=== PATIENT | male | born 1945 | race Caucasian/White ===

== ENCOUNTER 2016-11-20 10:03 | Emergency (ER) | payer BC, OTHER ==
[2016-11-20 10:11] VITALS: TEMP 98.4; BMI 28.8
--- NOTE | 2016-11-20 10:33 | PDOC ---
History of Present Illness - General History Source: Patient Exam Limitations: No Limitations - History of Present Illness Initial Comments: 11/20/16 11:18 The patient is a 71 year old male with history of CAD s/p RCA stent, anxiety/ depression requiring psychiatric admission, who presents to the ED complaining of several days of blurred vision. Per the patient's friend at bedside, the patient was seen by a retinal specialist on , who told him he had " blood behind the eyes" and sent him to the ED for further evaluation. The patient's friend endorses polyuria. She denies abdominal pain, nausea, or vomiting. No dizziness or headache. No fever or chills. Retina Specialist: Dr. Joaquim Rubin [phone] <Gabbie Erickson - Last Filed: 11/20/16 14:10> <Henrry Perez - Last Filed: 11/20/16 16:39> - General Chief Complaint: Blood Pressure Problem Stated Complaint: DIFFICULTY SEEING Time Seen by Provider: 11/20/16 10:33 Past History <Gabbie Erickson - Last Filed: 11/20/16 14:10> - Past Medical History Cardiac Disorders: Yes (STENT, PARTIALLY ACCLUDED CAROTID) Dementia: Yes (EARLY ONSET) Psychiatric Problems: Yes (DEPRESSION,ANXIETY,OCD) - Surgical History Cardiac Surgery: Yes (STENT) - Psycho/Social/Smoking Cessation Hx Anxiety: Yes Suicidal Ideation: No Smoking History: Never smoked Hx Alcohol Use: No Drug/Substance Use Hx: No <Henrry Perez - Last Filed: 11/20/16 16:39> - Past Medical History Allergies/Adverse Reactions: Allergies Allergy/AdvReac Type Severity Reaction Status Date / Time No Known Allergies Allergy Verified 11/20/16 10:11 Home Medications: Ambulatory Orders Hydrocortisone/Pramoxine [Proctofoam-Hc Foam] 10 gm QID #20 foam 11/20/16 Review of Systems - Review of Systems Able to Perform ROS?: Yes Comments:: 11/20/16 11:22 GENERAL/CONSTITUTIONAL: No fever or chills. No weakness. HEAD, EYES, EARS, NOSE AND THROAT: Bilateral blurred vision. No ear pain or discharge. No sore throat CARDIOVASCULAR: No chest pain or shortness of breath. RESPIRATORY: No cough, wheezing, or hemoptysis. GASTROINTESTINAL: No nausea, vomiting, diarrhea or constipation. GENITOURINARY: No dysuria, frequency, or change in urination. MUSCULOSKELETAL: No joint or muscle swelling or pain. No neck or back pain. SKIN: No rash NEUROLOGIC: No headache, vertigo, loss of consciousness, or change in strength/ sensation. ENDOCRINE: +Polyuria, +polydipsia. No abnormal weight change. HEMATOLOGIC/LYMPHATIC: No anemia, easy bleeding, or history of blood clots. ALLERGIC/IMMUNOLOGIC: No hives or skin allergy. <Gabbie Erickson - Last Filed: 11/20/16 14:10> *Physical Exam - Vital Signs Last Vital Signs Temp Pulse Resp BP Pulse Ox 98.4 F 67 18 188/97 98 11/20/16 10:06 11/20/16 10:06 11/20/16 10:06 11/20/16 10:06 11/20/16 10:06 - Physical Exam Comments: 11/20/16 11:23 GENERAL: Awake, alert, and fully oriented, in no acute distress HEAD: No signs of trauma EYES: PERRLA, EOMI, sclera anicteric, conjunctiva clear ENT: Auricles normal inspection, hearing grossly normal, nares patent, oropharynx clear without exudates. Moist mucosa NECK: Normal ROM, supple, no lymphadenopathy, JVD, or masses LUNGS: Breath sounds equal, clear to auscultation bilaterally. No wheezes, and no crackles HEART: Regular rate and rhythm, normal S1 and S2, no murmurs, rubs or gallops ABDOMEN: Soft, nontender, normoactive bowel sounds. No guarding, no rebound. No masses EXTREMITIES: Normal range of motion, no edema. No clubbing or cyanosis. No cords, erythema, or tenderness NEUROLOGICAL: Cranial nerves II through XII grossly intact. Normal speech, normal gait SKIN: Warm, Dry, normal turgor, no rashes or lesions noted. <Gabbie Erickson - Last Filed: 11/20/16 14:10> - Vital Signs Last Vital Signs Temp Pulse Resp BP Pulse Ox 98.4 F 67 18 188/97 98 11/20/16 10:06 11/20/16 10:06 11/20/16 10:06 11/20/16 10:06 11/20/16 10:06 <Henrry Perez Last Filed: 11/20/16 16:39> Heart Score/ECG Review #1 11/20/16 12:08 EKG obtained 12:04. Normal sinus rhythm (vent rate 63 bpm) with sinus arrhythmia. Left axis deviation Let ventricular hypertrophy with QRS widening and repolarization abnormality. Cannot rule out Septal infarct, age undetermined. Abnormal ECG. <Gabbie Erickson - Last Filed: 11/20/16 14:10> ED Treatment Course - LABORATORY CBC & Chemistry Diagram: 11/20/16 11:58 11/20/16 11:58 - RADIOLOGY Radiograph Interpretation: 11/20/16 14:09 Chest x-ray, read and interpreted by Dr. Fu, shows no acute pathology with no significant changes since comparison study. <Gabbie Erickson - Last Filed: 11/20/16 14:10> - LABORATORY CBC & Chemistry Diagram: 11/20/16 11:58 11/20/16 11:58 <Henrry Perez - Last Filed: 11/20/16 16:39> *DC/Admit/Observation/Transfer - Attestations Scribe Attestion: 11/20/16 11:24 Documentation prepared by Gabbie Erickson, acting as medical records assistant for Henrry Perez DO. <Gabbie Erickson - Last Filed: 11/20/16 14:10> - Discharge Dispostion Admit: No - Attestations Physician Attestion: 11/20/16 10:33 I, Dr. Henrry Perez, attest that this document has been prepared under my direction and personally reviewed by me in its entirety. I further attest, that it accurately reflects all work, treatment, procedures and medical decision -making performed by me. <Henrry Perez - Last Filed: 11/20/16 16:39> Diagnosis at time of Disposition: Mild hypertension - Discharge Dispostion Disposition: HOME Condition at time of disposition: Good - Prescriptions Prescriptions: Hydrocortisone/Pramoxine [Proctofoam-Hc Foam] 10 gm RC QID #20 foam - Patient Instructions Printed Discharge Instructions: DI for High Blood Pressure Additional Instructions: Shahram- I feel uncomfortable prescribing a blood pressure medicine for you since I will not have any ongoing contact with you and your blood pressure is not so high that we need to bring it down right now. Talk with the human services case manager about getting you some insurance - you are 71 and should be on medicare. You need to follow up with the free clinic later this week and they will take it from there. [facility] [address], [place] Best- Dr. Henrry Perez
[2016-11-20 12:12] LABS: BASOPHIL 0.4 % (0-2.0); EOSINOPHIL 0.6 % (0-4.5); MCHC 32.9 g/dl (32.0-35.9); MEAN CELL VOLUME 85.1 fl (80-96); MEAN PLT VOLUME 7.9 fl (7.5-11.1); NEUTROPHILS 79.7 % (42.8-82.8); PLATELET COUNT 150 K/MM3 (134-434); RDW 14.5 % (11.9-15.9); WHITE BLOOD COUNT 9.5 K/mm3 (4.0-10.0)
[2016-11-20 12:24] LABS: INR 1.14 (0.82-1.09); PROTHROMBIN TIME (PATIENT) 12.6 SEC (9.98-11.88)
[2016-11-20 12:34] LABS: ALBUMIN 3.8 g/dl (3.4-5.0); ANION GAP 4 (8-16); BILIRUBIN,TOTAL 0.6 mg/dL (0.2-1.0); CALCIUM 8.2 mg/dL (8.5-10.1); CO2 33 mmol/L (21-32); CREATININE 0.9 mg/dL (0.7-1.3); GLUCOSE,RANDOM 97 mg/dL (74-106); SGOT/AST 18 U/L (15-37); SGPT/ALT 26 U/L (12-78); TOT PROT 7.2 g/dl (6.4-8.2)
[2016-11-20 12:36] LABS: ALK PHOS 73 U/L (45-117); TROPONIN I < 0.02 ng/ml (0.00-0.05)
[2016-11-20 15:03] LABS: URINE APPEARANCE CLEAR; URINE BILIRUBIN NEGATIVE (NEGATIVE); URINE BLOOD NEGATIVE (NEGATIVE); URINE COLOR STRAW; URINE GLUCOSE (UA) NEGATIVE (NEGATIVE); URINE KETONE NEGATIVE (NEGATIVE); URINE LEUK ESTERASE NEGATIVE (NEGATIVE); URINE NITRITE NEGATIVE (NEGATIVE); URINE PROTEIN NEGATIVE (NEGATIVE); URINE UROBILINOGEN NEGATIVE E.U./dl (0.2-1.0)
[2016-11-20 17:04] VITALS: BP 199/78; PULSE 60
--- NOTE | 2016-11-20 18:11 | EKG ---
Test Reason : Blood Pressure : / mmHG Vent. Rate : 063 BPM Atrial Rate : 063 BPM P-R Int : 208 ms QRS Dur : 128 ms QT Int : 440 ms P-R-T Axes : 007 -60 074 degrees QTc Int : 450 ms NORMAL SINUS RHYTHM WITH SINUS ARRHYTHMIA LEFT AXIS DEVIATION LEFT VENTRICULAR HYPERTROPHY WITH QRS WIDENING AND REPOLARIZATION ABNORMALITY CANNOT RULE OUT SEPTAL INFARCT , AGE UNDETERMINED ABNORMAL ECG WHEN COMPARED WITH ECG OF 10-DEC-2010 14:01, MINIMAL CRITERIA FOR SEPTAL INFARCT ARE NOW PRESENT Confirmed by DION GALEANO MD ([id number]) on 11/20/2016 6:10:32 PM Referred By: Confirmed By:DION GALEANO MD
== END 2016-11-20 17:04 | disposition home or self-care (01) ==
LOC: JER 10:03
DX: I10 Essential (primary) hypertension (principal); I25.10 Atherosclerotic heart disease of native coronary artery without angina pectoris; Z95.5 Presence of coronary angioplasty implant and graft; F41.8 Other specified anxiety disorders; F03.90 Unspecified dementia, unspecified severity, without behavioral disturbance, psychotic disturbance, mood disturbance, and anxiety; I65.29 Occlusion and stenosis of unspecified carotid artery
CPT/HCPCS: 36415; 71020-TC; 80053; 81003; 82550; 84484; 85025; 85610; 93005; 93010; 99283-25

== ENCOUNTER 2018-07-10 08:49 | Emergency (ER) | payer SELFPAY ==
[2018-07-10 09:02] VITALS: TEMP 98.7; BMI 27.4
--- NOTE | 2018-07-10 09:39 | PDOC ---
History of Present Illness <Nataly Lazcano - Last Filed: 07/10/18 11:25> - General History Source: Patient, Friend Exam Limitations: No Limitations - History of Present Illness Initial Comments: 07/10/18 09:36 Pt is a 73yo m with PMH of CAD s/p stent placement presenting to ED with complaints of "irregular stream" upon urination. Symptoms have been going on for 1 year but now pt is having urinary frequency and some feeling of not empyting his bladder sometimes. Pt does not have a PCP or urologist. Last visit to the hospital was 2 years ago. He denies fevers, chills, incontinence, hematuria, dysuria, abdominal pain, n/v/d, headaches, chest pain, SOB, back pain , neck pain, changes in vision, numbness/tingling. PCP: none PMH: CAD PSH: stent Meds: none Social: denies Allergies: nkda <Martina Rebolledo - Last Filed: 07/10/18 13:42> - General Chief Complaint: Urinary Problem Stated Complaint: Urinary Problem Time Seen by Provider: 07/10/18 09:11 Past History <NenoNataly - Last Filed: 07/10/18 11:25> - Past Medical History Cardiac Disorders: Yes (STENT, PARTIALLY ACCLUDED CAROTID) COPD: No Dementia: Yes (EARLY ONSET) Psychiatric Problems: Yes (DEPRESSION,ANXIETY,OCD) - Surgical History Cardiac Surgery: Yes (STENT) - Suicide/Smoking/Psychosocial Hx Smoking History: Never smoked Hx Alcohol Use: No Drug/Substance Use Hx: No <Martina Rebolledo - Last Filed: 07/10/18 13:42> - Past Medical History Allergies/Adverse Reactions: Allergies Allergy/AdvReac Type Severity Reaction Status Date / Time No Known Allergies Allergy Verified 07/10/18 08:58 Home Medications: Ambulatory Orders Amlodipine Besylate [Norvasc -] 5 mg PO DAILY #14 tab 07/10/18 Review of Systems - Review of Systems Constitutional: No: Chills, Fever, Weakness HEENTM: No: Recent change in vision Respiratory: No: Cough, Shortness of Breath, SOB with Exertion, SOB at Rest Cardiac (ROS): No: Chest Pain, Lightheadedness, Palpitations, Syncope ABD/GI: No: Constipated, Diarrhea, Nausea, Rectal Bleeding, Vomiting, Abdominal cramping, Tarry Stools : Yes: Frequency. No: Burning, Dysuria, Hematuria, Urgency, Testicular Pain Musculoskeletal: No: Back Pain, Neck Pain Integumentary: No: Symptoms Reported Neurological: No: Headache, Numbness, Tingling, Tremors, Weakness <Martina Rebolledo - Last Filed: 07/10/18 13:42> *Physical Exam - Vital Signs Last Vital Signs Temp Pulse Resp BP Pulse Ox 98.7 F 58 L 20 220/62 H 100 07/10/18 08:58 07/10/18 11:12 07/10/18 11:12 07/10/18 11:12 07/10/18 11:12 <Nataly Lazcano - Last Filed: 07/10/18 11:25> - Vital Signs Last Vital Signs Temp Pulse Resp BP Pulse Ox 98.7 F 71 18 201/72 H 98 07/10/18 08:58 07/10/18 08:58 07/10/18 08:58 07/10/18 08:58 07/10/18 08:58 - Physical Exam General Appearance: Yes: Nourished, Appropriately Dressed. No: Apparent Distress HEENT: positive: EOMI, STEFANO, Pharynx Normal, Hearing Grossly Normal. negative: Scleral Icterus (R), Scleral Icterus (L) Neck: positive: Trachea midline, Supple. negative: Carotid bruit, Lymphadenopathy (R), Lymphadenopathy (L) Respiratory/Chest: positive: Lungs Clear, Normal Breath Sounds. negative: Crackles, Rales, Stridor, Wheezing Cardiovascular: positive: Regular Rate, S1, S2, Irregular. negative: Edema, JVD , Murmur Vascular Pulses: Carotid (R): 2+, Carotid (L): 2+, Dorsalis-Pedis (R): 1+, Doralis-Pedis (L): 1+ Gastrointestinal/Abdominal: positive: Normal Bowel Sounds, Soft, Protuberent ( suprapubic). negative: Guarding, Rebound, Tenderness, Hernia, Mass Male Genitalia: positive: other (firm testicles with overlying erythema, not warm.). negative: testicular tenderness, hernia Musculoskeletal: negative: CVA Tenderness Extremity: positive: Normal Capillary Refill, Swelling (bilateral edema to knees ). negative: Coldness Integumentary: positive: Normal Color, Dry, Warm Neurologic: positive: asp net c developer II-XII NML intact, Fully Oriented, Alert, Normal Mood/ Affect, Normal Response, Motor Strength 5/5 <Martina Rebolledo - Last Filed: 07/10/18 13:42> ED Treatment Course - LABORATORY CBC & Chemistry Diagram: 07/10/18 09:37 07/10/18 09:37 - ADDITIONAL ORDERS Additional order review: Laboratory Results 07/10/18 07/10/18 09:57 09:37 Sodium 139 Potassium 4.1 Chloride 105 Carbon Dioxide 31 Anion Gap 3 L BUN 19 H Creatinine 0.8 Creat Clearance w eGFR > 60 Random Glucose 83 Calcium 8.8 Total Bilirubin 0.6 AST 20 ALT 29 Alkaline Phosphatase 71 Total Protein 7.6 Albumin 3.7 Urine Color Straw Urine Appearance Clear Urine pH 6.0 Ur Specific [place] 1.011 Urine Protein Negative Urine Glucose (UA) Negative Urine Ketones Negative Urine Blood Negative Urine Nitrite Negative Urine Bilirubin Negative Urine Urobilinogen Negative Ur Leukocyte Esterase Negative 07/10/18 09:37 RBC 5.15 MCV 83.3 MCHC 33.8 RDW 15.1 MPV 7.6 Neutrophils % 76.2 Lymphocytes % 14.5 D Monocytes % 8.1 Eosinophils % 0.9 Basophils % 0.3 - Medications Given in the ED: ED Medications Discontinued Medications Generic Name Dose Route Start Last Admin Trade Name Marco PRN Reason Stop Dose Admin Amlodipine Besylate 5 mg 07/10/18 11:03 07/10/18 11:12 Norvasc - PO 07/10/18 11:04 5 mg ONCE ONE Administration <Nataly Lazcano - Last Filed: 07/10/18 11:25> - LABORATORY CBC & Chemistry Diagram: 07/10/18 09:37 07/10/18 09:37 <Martina Rebolledo - Last Filed: 07/10/18 13:42> Medical Decision Making - Medical Decision Making 07/10/18 10:14 Pt is a 73yo m with PMH of CAD s/p stent placement presenting to ED with complaints of "irregular stream" upon urination. +frequency and some feelings of incomplete bladder emptying Vitals: hypertensive PE: nontender abdomen, bladder fullness. BPH v. obstruction. hypertensive urgency v. emergency Lombardi was placed by nurse. Per friend, pt voided prior to evaluation in ED. Post void volume from lombardi was <150. Low suspicion for obstruction. UA, UC, cbc, cmp, ekg orderd. Per friend, pt has not been himself since 2008 when he was diagnosed with Shingles. 07/10/18 10:20 EKG showed left anterior fascicular block, no adalid or depressions, peaked t waves. Labs wnl, UA negative for infection. Pt given po amlodipine for bp. Pt does not have any acute pathology at this time. No need to stay in hospital. Has elevated bp without signs of end organ damage. Will d/c with amolodipine 5mg. Pt given appointment with Dr. Esquivel on Monday at noon, arranged by brie Ingram. Pt agreed to appointment. Will dc home with strict return precautions. Friend of pt also agreed. <Martina Rebolledo - Last Filed: 07/10/18 13:42> *DC/Admit/Observation/Transfer <Nataly Lazcano - Last Filed: 07/10/18 11:25> - Discharge Dispostion Decision to Admit order: No <Martina Rebolledo - Last Filed: 07/10/18 13:42> Diagnosis at time of Disposition: Abnormal urinary stream Hypertension Qualifiers: Hypertension type: unspecified Qualified Code(s): I10 - Essential (primary) hypertension - Discharge Dispostion Disposition: HOME Condition at time of disposition: Good - Prescriptions Prescriptions: Amlodipine Besylate [Norvasc -] 5 mg PO DAILY #14 tab - Referrals Referrals: [facility] [place] [Provider Group] - Patient Instructions Printed Discharge Instructions: DI for High Blood Pressure Additional Instructions: You were seen here today for evaluation of abnormal urine stream. Your tests were normal. As of now, the exact cause of your symptoms is unknown but there is nothing dangerous going on. You do have high blood pressure (hypertension). This needs to be controlled to prevent further problems. I highly suggest you follow up with a primary care doctor for your healthcare needs. There is an appointment schedule for you on Monday, July 13, [address] Ritter. There is also a prescription ready for you at your pharmacy for blood pressure. It is amlodipine 5mg. Take it everyday unless otherwise directed. Come back to the ED if: you are unable to urinate, you have incontinence, you notice blood in your urine, you have chest pain, you feel short of breath, you have sudden weakness, facial drooping or slurred speech, or if any new concerning symptom develops
--- NOTE | 2018-07-10 09:41 | PDOC ---
Attending Attestation - Resident Resident Name: Martina Rebolledo - ED Attending Attestation I have performed the following: I have examined & evaluated the patient, The case was reviewed & discussed with the resident, I agree w/resident's findings & plan, Exceptions are as noted - HPI HPI: 07/10/18 09:40 73y M hx of CAD sp stents, presnts with complaint of poor stream and urinary frequency with urination for the past few months. Per the pts HCP/significant other, the patient has been gradually deteriorting over the past few years, more forgetful, not really taking care of himself with hygiene. The pt denies any focal complaints including headache, dizziness, cho, sob, cp abd pain, n/v, dysuria, diarrhea, melena, bpr. Pt notes chronic leg edema. pt notes he has not followed up with any docotrs in a few years. GENERAL: The patient is awake, alert, Nontoxic - in no acute distress. HEAD: Normocephalic, atraumatic. EYES: extraocular movements intact, sclera anicteric, conjunctiva clear. ENT: Normal voice, Moist mucous membranes. NECK: Normal range of motion, supple LUNGS: Breath sounds equal, clear to auscultation bilaterally. No wheezes, no rhonchi, no rales. HEART: slightly bradycardic ABDOMEN: Soft, nontender, No guarding, no rebound. . No CVA tenderness EXTREMITIES: Normal range of motion, +3 pitting edema NEUROLOGICAL: No facial assymetry, Normal speech, PSYCH: Normal mood, normal affect. SKIN: Warm, Dry, normal turgor, The patient's post void residual was approximately, suspect BPH rather than obstruction Will check screening blood work to rule out anemia, metabolic derangements EKG to screen for ACS UA to rule out UTI Suspect the patient may have mild dementia and BPH, if the patient's blood work is normal and anticipate referral to primary care. If the pts labs are normal consider starting the patient on amlodipine 5 mg for control of his hypertension. - Physicial Exam PE: 07/10/18 19:41 see above - Medical Decision Making 07/10/18 11:05 pts labs are normal will dc the pt with pmd fu will give him amlodipine for his bp 07/10/18 12:05 made pt an appoitnment for PMD for monday Heart Score/ECG Review - ECG Impressions Comment:: 07/10/18 10:44 Twelve-lead EKG was performed and reviewed by me. There is normal sinus rhythm with a rate of 49 Left anterior fascicular block no LUCERO
[2018-07-10 10:16] LABS: BASO % 0.3 % (0-2.0); EOS % 0.9 % (0-4.5); HEMATOCRIT 42.9 % (35.4-49); HEMOGLOBIN 14.5 GM/dL (11.7-16.9); LYMPH % 14.5 % (8-40); MCH 28.1 pg (25.7-33.7); MCHC 33.8 g/dl (32.0-35.9); MEAN CELL VOLUME 83.3 fl (80-96); MEAN PLT VOLUME 7.6 fl (7.5-11.1); MONO % 8.1 % (3.8-10.2); NEUT % 76.2 % (42.8-82.8); PLATELET COUNT 182 K/MM3 (134-434); RBC 5.15 M/mm3 (4.00-5.60); RDW 15.1 % (11.9-15.9); WHITE BLOOD COUNT 7.6 K/mm3 (4.0-10.0)
[2018-07-10 10:31] LABS: URINE APPEARANCE CLEAR; URINE BILIRUBIN NEGATIVE (<2.0 mg/dL); URINE COLOR STRAW; URINE GLUCOSE (UA) NEGATIVE (NEGATIVE); URINE KETONE NEGATIVE (NEGATIVE); URINE LEUK ESTERASE NEGATIVE (NEGATIVE); URINE NITRITE NEGATIVE (NEGATIVE); URINE PROTEIN NEGATIVE (NEGATIVE); URINE UROBILINOGEN NEGATIVE mg/dL (0.2-1.0)
[2018-07-10 10:48] LABS: ALBUMIN 3.7 g/dl (3.4-5.0); ALK PHOS 71 U/L (45-117); ANION GAP 3 MMOL/L (8-16); BILIRUBIN,TOTAL 0.6 mg/dL (0.2-1); BLOOD UREA NITROGEN 19 mg/dL (7-18); CALCIUM 8.8 mg/dL (8.5-10.1); CHLORIDE 105 mmol/L (98-107); CO2 31 mmol/L (21-32); CREATININE 0.8 mg/dL (0.55-1.3); GLUCOSE,RANDOM 83 mg/dL (74-106); POTASSIUM 4.1 mmol/L (3.5-5.1); SGOT/AST 20 U/L (15-37); SGPT/ALT 29 U/L (13-61); SODIUM 139 mmol/L (136-145); TOT PROT 7.6 g/dl (6.4-8.2)
[2018-07-10] MEDS ORDERED: amLODIPine BESYLATE 5 MG TABLET (FP) PO ONE (11:03)
[2018-07-10] MEDS ORDERED: amLODIPine BESYLATE 5 MG TABLET (FP) ONE (11:04)
[2018-07-10 12:22] VITALS: BP 204/79; PULSE 62
--- NOTE | 2018-07-10 17:03 | EKG ---
Test Reason : Blood Pressure : / mmHG Vent. Rate : 049 BPM Atrial Rate : 049 BPM P-R Int : 206 ms QRS Dur : 110 ms QT Int : 454 ms P-R-T Axes : 070 -60 042 degrees QTc Int : 410 ms SINUS BRADYCARDIA LEFT ANTERIOR FASCICULAR BLOCK VOLTAGE CRITERIA FOR LEFT VENTRICULAR HYPERTROPHY CANNOT RULE OUT SEPTAL INFARCT (CITED ON OR BEFORE 20-NOV-2016) ABNORMAL ECG WHEN COMPARED WITH ECG OF 20-NOV-2016 12:04, QUESTIONABLE CHANGE IN INITIAL FORCES OF SEPTAL LEADS Confirmed by MD DENTON, SAEED ([id number]) on 07/10/2018 5:03:07 PM Referred By: Confirmed By:SAEED CHAWLA MD
== END 2018-07-10 12:20 | disposition home or self-care (01) ==
LOC: JER 08:49
DX: R39.198 Other difficulties with micturition (principal); I10 Essential (primary) hypertension; I25.10 Atherosclerotic heart disease of native coronary artery without angina pectoris; Z95.5 Presence of coronary angioplasty implant and graft; F03.90 Unspecified dementia, unspecified severity, without behavioral disturbance, psychotic disturbance, mood disturbance, and anxiety; F32.9 Major depressive disorder, single episode, unspecified; F41.9 Anxiety disorder, unspecified; F42.9 Obsessive-compulsive disorder, unspecified
CPT/HCPCS: 36415; 80053; 81003; 85025; 87086; 93005; 93010; 99285-25

== ENCOUNTER 2018-09-10 10:19 | Inpatient (IN) | payer OTHER ==
--- NOTE | 2018-09-10 12:08 | PDOC ---
History of Present Illness - General Chief Complaint: Urinary Problem Stated Complaint: PAIN Time Seen by Provider: 09/10/18 11:06 History Source: Friend Exam Limitations: Clinical Condition - History of Present Illness Travel History: No Initial Comments: 09/10/18 12:07 Patient is a 73 year old male with a PMHx of HTN, CAD s/p stents x2 who was brought in by his roommate due to urinary frequency. According to patients roommate, his mental acuity has significantly declined since he had shingles back in 2008 and in the last couple weeks his gait has been significantly unstable with but with no falls. Patients roommate reports yesterday, patient was in the bathroom throughout the whole day with straining to the point where he would have to sit on the toilet and squeeze his penis. When asking the patient questions, he answers no to everything. His roommate reports that he will deny every question you ask Patient was admitted to [facility] inpatient psych unit in 2009 for 30 days. Patients roommate reports that he does not follow up with any doctors due to insurance problems and that patient does not take care of his body. States he is disheveled and continuously has a body odor, despite taking showers Otherwise, patient denies any chest pain, palpitations, shortness of breath, fever, chills, nausea, vomiting, abdominal pain, loss of consciousness, dysuria. PMHx: CAD s/p stents x2 HTN PSHx: Stents x2 Social Hx: Used to work as an payroll accountant Lives with roommate Denies alcohol Denies drugs Denies smoking Past History - Travel Traveled outside of the country in the last 30 days: No Close contact w/someone who was outside of country & ill: No - Past Medical History Allergies/Adverse Reactions: Allergies Allergy/AdvReac Type Severity Reaction Status Date / Time No Known Allergies Allergy Verified 07/10/18 08:58 Home Medications: Ambulatory Orders Amlodipine Besylate [Norvasc -] 5 mg PO DAILY #14 tab 07/10/18 Cardiac Disorders: Yes (STENT, PARTIALLY ACCLUDED CAROTID) COPD: No Dementia: Yes (EARLY ONSET) Psychiatric Problems: Yes (DEPRESSION,ANXIETY,OCD) - Surgical History Cardiac Surgery: Yes (STENT) Lung Surgery: No - Immunization History Immunization Up to Date: No - Suicide/Smoking/Psychosocial Hx Smoking History: Never smoked Have you smoked in the past 12 months: No Information on smoking cessation initiated: No Hx Alcohol Use: No Drug/Substance Use Hx: No Review of Systems - Review of Systems Constitutional: No: Chills, Fever HEENTM: No: Throat Pain Respiratory: No: Cough, Shortness of Breath, SOB with Exertion Cardiac (ROS): Yes: Edema. No: Chest Pain ABD/GI: No: Difficulty Swallowing, Nausea, Vomiting : Yes: Frequency, Incontinence. No: Burning, Dysuria, Testicular Swelling Musculoskeletal: No: Back Pain, Joint Pain Integumentary: No: Erythema, Flushing Neurological: Yes: Unsteady Gait Psychiatric: No: Depression, Frequent Crying *Physical Exam - Vital Signs Last Vital Signs Temp Pulse Resp BP Pulse Ox 98.7 F 66 16 127/64 98 09/10/18 10:47 09/10/18 10:47 09/10/18 10:47 09/10/18 10:47 09/10/18 10:47 - Physical Exam General Appearance: Yes: Disheveled, Other (body odor, no acute distress ) HEENT: negative: Pharyngeal Erythema, Tonsillar Exudate, Tonsillar Erythema, Rhinorrhea Neck: positive: Trachea midline, Supple. negative: Lymphadenopathy (R), Lymphadenopathy (L), Rigidity Respiratory/Chest: positive: Lungs Clear, Normal Breath Sounds. negative: Crackles, Rales, Rhonchi, Stridor Cardiovascular: positive: Regular Rhythm, Regular Rate, Edema. negative: JVD, Tachycardia, Diastolic Murmur Vascular Pulses: Dorsalis-Pedis (R): 2+, Doralis-Pedis (L): 2+ Gastrointestinal/Abdominal: positive: Normal Bowel Sounds, Soft. negative: Protuberent, Distended, Guarding Male Genitalia: positive: inguinal hernia (bilaterally ). negative: discharge, testicular tenderness, testicular mass Rectal Exam: positive: normal rectal tone, other (Enlarged prostate ). negative : melena, hemorrhoids Musculoskeletal: negative: CVA Tenderness, CVA Tenderness (R), CVA Tenderness (L ), Decreased Range of Motion Extremity: positive: Pedal Edema (3+ bilaterally ), Other (chronic venous stasis ). negative: Calf Tenderness, Erythema Integumentary: positive: Normal Color, Dry, Warm, Other (Right 2x2 cm mole). negative: Cyanotic, Erythema, Jaundice Neurologic: positive: chemist instrumentation II-XII NML intact, Fully Oriented, Alert, Normal Mood/ Affect, Motor Strength 5/5, Other Moderate Sedation - Procedure Monitoring Vital Signs: Procedure Monitoring Vital Signs Temperature 98.7 F 09/10/18 10:47 Pulse Rate 66 09/10/18 10:47 Respiratory Rate 16 09/10/18 10:47 Blood Pressure 127/64 09/10/18 10:47 O2 Sat by Pulse Oximetry (%) 98 09/10/18 10:47 ED Treatment Course - LABORATORY CBC & Chemistry Diagram: 09/10/18 13:07 09/10/18 13:07 Progress Note - Progress Note Progress Note: Patient brought in by roommate due to urinary frequency and straining, gait instability, progressive decline in mental acuity and concerned due to patient being medically noncompliant. When speaking to patient he denies any current problems Will need to work up patient and rule out any infectious etiology such as UTI or pneumonia. -CBC, CMP, LACTIC Ordered -Bladder scan ordered -CXR ordered -BNP ordered -Consulted social worker delinquency prevention -U/A and urine culture ordered 09/10/18 1427 -Labs and urine Unremarkable except for BNP >900 -Bladder/Pelvis/Kidney U/S ordered -Microblogged Symphony and spoke to symphony -Will need to admit patient due to failure to thrive, gait instability -Will order MRI of brain to rule out Normal Pressure hydrocephalus -Patient accepted by hospitalist *DC/Admit/Observation/Transfer Diagnosis at time of Disposition: Abnormal urinary stream, Failure to thrive - Discharge Dispostion Condition at time of disposition: Stable Decision to Admit order: Yes - Referrals Referrals: Daniela Ritter MD [Primary Care Provider] - - Patient Instructions - Post Discharge Activity
[2018-09-10 13:15] LABS: BASO % 0.3 % (0-2.0); EOS % 0.7 % (0-4.5); HEMATOCRIT 40.6 % (35.4-49); HEMOGLOBIN 13.8 GM/dL (11.7-16.9); LYMPH % 15.4 % (8-40); MCH 28.6 pg (25.7-33.7); MCHC 33.9 g/dl (32.0-35.9); MEAN CELL VOLUME 84.2 fl (80-96); MEAN PLT VOLUME 7.7 fl (7.5-11.1); MONO % 9.6 % (3.8-10.2); PLATELET COUNT 173 K/MM3 (134-434); RBC 4.82 M/mm3 (4.00-5.60); RDW 15.3 % (11.9-15.9); WHITE BLOOD COUNT 8.3 K/mm3 (4.0-10.0)
[2018-09-10 13:38] LABS: ALBUMIN 3.9 g/dl (3.4-5.0); ALK PHOS 85 U/L (45-117); ANION GAP 5 MMOL/L (8-16); BILIRUBIN,TOTAL 0.9 mg/dL (0.2-1); BLOOD UREA NITROGEN 18 mg/dL (7-18); CALCIUM 8.6 mg/dL (8.5-10.1); CHLORIDE 103 mmol/L (98-107); CO2 32 mmol/L (21-32); CREATININE 0.9 mg/dL (0.55-1.3); GLUCOSE,RANDOM 93 mg/dL (74-106); N-TERMINAL BNP 962.2 pg/ml (5-125); POTASSIUM 4.2 mmol/L (3.5-5.1); SGOT/AST 27 U/L (15-37); SGPT/ALT 29 U/L (13-61); SODIUM 139 mmol/L (136-145); TOT PROT 7.6 g/dl (6.4-8.2)
--- NOTE | 2018-09-10 13:41 | PDOC ---
Attending Attestation - Resident Resident Name: Anaya Horner - ED Attending Attestation I have performed the following: I have examined & evaluated the patient, The case was reviewed & discussed with the resident, I agree w/resident's findings & plan, Exceptions are as noted - Medical Decision Making 09/10/18 13:40 A portion of this note was documented by scribe services under my direction. I have reviewed the details of the note, within reason, and agree with the documentation with the following case summary and management plan written by me. Patient treated in the ED. Nursing notes are reviewed and incorporated into the medical decision-making. Vital signs reviewed. Peripheral IV access obtained by the nurse, laboratory studies are drawn and sent, reviewed and interpreted by myself. Vital Signs Temp Pulse Resp BP Pulse Ox 98.7 F 66 16 127/64 98 09/10/18 10:47 09/10/18 10:47 09/10/18 10:47 09/10/18 10:47 09/10/18 10:47 73-year-old male with history of coronary disease status post stents, hypertension, likely dementia presents with urinary frequency and dysuria. The patient overall is a poor historian. According to the patient's friend who lives with the patient, the patient has been being more frequently with dysuria. However, no fevers or chills. Over last 3 weeks, the patient appears to have some failure to thrive. Has been having increasingly more difficulty caring for himself and difficulty relating. Patient has chronic lower extremity edema which has slowed down is walking. However, the patient denies any pain. I suspect patient may either have urinary retention, complications of BPH, cystitis. However, we'll evaluate for acute renal failure, fluid retention. We' ll obtain a kidney bladder ultrasound to evaluate for post void residual. If patient is unable to void, we'll place a Vazquez catheter. Patient's friend is concerned for the patient as he has difficulty care for some, with poor hygiene and typically unable to care for his daily activities of living. general i farmworker was consulted in regards these matters. We'll obtain labs, urinalysis and reassess. <Madhu Ruffin - Last Filed: 09/10/18 13:40> - HPI HPI: 09/10/18 14:05 The patient is a 73 year old male with a past medical history of CAD s/p 2 stents, hypertension, anxiety, and possible dementia who was brought to the emergency department by his roomate for evaluation of urinary frequency. As per roomate, the patient has been peeing more frequently, spending most of yesterday in the bathroom. As per roomate, she has also noticed the patients ambulatory status has become unstable over the last 3 weeks. Patients roommate states since acquiring shingles in 2008, patient has become disheveled and developed poor hygiene. Patient has had chronic lower extremity swelling, which has worsened as per roommate. Patient overall is a poor historian. The patient denies any pain. Patient's roomate Zhanna phone# [phone] - Physicial Exam PE: GENERAL: Awake, alert, and fully oriented, in no acute distress HEAD: No signs of trauma EYES: PERRLA, EOMI, sclera anicteric, conjunctiva clear NECK: Normal ROM, supple, no lymphadenopathy, JVD, or masses LUNGS: Breath sounds equal, clear to auscultation bilaterally. No wheezes, and no crackles HEART: Regular rate and rhythm, normal S1 and S2, no murmurs, rubs or gallops ABDOMEN: (+)Bilateral inguinal hernia. Soft, nontender. No guarding, no rebound. No masses EXTREMITIES: (+)2 plus pitting edema in lower extremities. Normal range of motion. No cords, erythema, or tenderness NEUROLOGICAL: Cranial nerves II through XII grossly intact. Normal speech, normal gait SKIN: Warm, Dry, normal turgor, no rashes or lesions noted. <Mike Garcia - Last Filed: 09/10/18 14:17> Attestations - Attestations Documentation prepared by Mike Garcia, acting as medical collections for Madhu Ruffin MD. <Mike Garcia - Last Filed: 09/10/18 14:17>
[2018-09-10 13:53] LABS: URINE APPEARANCE CLEAR; URINE BILIRUBIN NEGATIVE (<2.0 mg/dL); URINE COLOR STRAW; URINE GLUCOSE (UA) NEGATIVE (NEGATIVE); URINE KETONE TRACE (NEGATIVE); URINE LEUK ESTERASE NEGATIVE (NEGATIVE); URINE NITRITE NEGATIVE (NEGATIVE); URINE PROTEIN NEGATIVE (NEGATIVE)
--- NOTE | 2018-09-10 15:17 | HP ---
CHIEF COMPLAINT: PCP: None HISTORY OF PRESENT ILLNESS: Poor historian. History obtained from the room mate present at bed side. Patient is a 73 year old male presented to the ED accompanied with roommate with the chief complaint of worsening of urinary retention and gait instability. As per the room mate, he has been going to the bathroom every hour to urinate and usually sits in the toilet and " squeezes his penis ". It has been going on since a couple of weeks but it has been worsening since past couple of days. However, patient denies any urinary symptoms, no dysuria, urgency, hesitency, incontinence or hematuria. Denies chest pain, sob, cough, palpitation, abdominal pain, nausea or vomiting. Has gait instability which has been worsening since few years. No h/o fall. Has been getting forgetful but is able to do daily activities and live independently. Patient reports he has a history of "constipation", last bowel movement was yesterday. no blood in stool. She also mentions patient went on a vacation in 2008, had herpes zooster after which he hasn't been feeling well. Was admitted in psych facility at [facility] for a month in 2009. Since discharge hasn't visited any doctors. Also reports that he is disheleved, doesn't take showers, is smelly to the point that no one wants to get on the elevator with him. Has vigorous appetite. No trouble sleeping but sleeps with his shoes. ER course was notable for: (1) Afebrile, hemodynamically stable. (2) Labs unremarkable. CXR normal. Renal/bladder ultrasound normal. (3) No meds Recent Travel: None PAST MEDICAL HISTORY: Hypertension, CAD s/p stents, Psych disorder (not on any meds) PAST SURGICAL HISTORY: s/p stents more than 10 yrs ago Social History: Lives with a room mate Smoking: Denies Alcohol: Denies Drugs: Denies Family History: Non contributory Allergies No Known Allergies Allergy (Verified 07/10/18 08:58) HOME MEDICATIONS: Home Medications Medication Instructions Recorded Amlodipine Besylate [Norvasc -] 5 mg PO DAILY #14 tab 07/10/18 REVIEW OF SYSTEMS CONSTITUTIONAL: Absent: fever, chills, diaphoresis, generalized weakness, malaise, loss of appetite, weight change HEENT: Absent: rhinorrhea, nasal congestion, throat pain, throat swelling, difficulty swallowing, mouth swelling, ear pain, eye pain, visual changes CARDIOVASCULAR: Absent: chest pain, syncope, palpitations, irregular heart rate, lightheadedness , peripheral edema RESPIRATORY: Absent: cough, shortness of breath, dyspnea with exertion, orthopnea, wheezing, stridor, hemoptysis GASTROINTESTINAL: Absent: abdominal pain, abdominal distension, nausea, vomiting, diarrhea, constipation, melena, hematochezia GENITOURINARY: Present: urgency, frequency (as per room mate but patient denies) Absent: dysuria, hesitancy, hematuria, flank pain, genital pain MUSCULOSKELETAL: Absent: myalgia, arthralgia, joint swelling, back pain, neck pain SKIN: Absent: rash, itching, pallor HEMATOLOGIC/IMMUNOLOGIC: Absent: easy bleeding, easy bruising, lymphadenopathy, frequent infections ENDOCRINE: Absent: unexplained weight gain, unexplained weight loss, heat intolerance, cold intolerance NEUROLOGIC: Absent: headache, focal weakness or paresthesias, dizziness, unsteady gait, seizure, mental status changes, bladder or bowel incontinence PSYCHIATRIC: Absent: anxiety, depression, suicidal or homicidal ideation, hallucinations. PHYSICAL EXAMINATION Vital Signs - 24 hr 09/10/18 10:47 Temperature 98.7 F Pulse Rate 66 Respiratory 16 Rate Blood Pressure 127/64 O2 Sat by Pulse 98 Oximetry (%) GENERAL: Elderly male, dishelved, Awake, alert, and fully oriented, in no acute distress. HEAD: Normal with no signs of trauma. EYES: EOM intact, no pallor or icterus. EARS, NOSE, THROAT: Ears normal. Moist mucous membranes, poor dentition. NECK: Supple, no JVD LUNGS: Breath sounds equal, clear to auscultation bilaterally. No wheezes, and no crackles. No accessory muscle use. HEART: Regular rate and rhythm, normal S1 and S2 without murmur. ABDOMEN: Soft, nontender, no organomegaly. MUSCULOSKELETAL: Normal range of motion at all joints. No bony deformities or tenderness. No CVA tenderness. UPPER EXTREMITIES: 2+ pulses, warm, well-perfused. No cyanosis. No clubbing. No peripheral edema. LOWER EXTREMITIES: 2+ pulses, warm, well-perfused. No calf tenderness. B/L pitting peripheral edema. NEUROLOGICAL: No facial droop. Normal speech. Gait not observed. PSYCHIATRIC: Cooperative. Good eye contact. Appropriate mood and affect. SKIN: Warm, dry, normal turgor, no rashes or lesions noted, normal capillary refill. Laboratory Results - last 24 hr 09/10/18 09/10/18 09/10/18 13:02 13:07 13:07 WBC 8.3 RBC 4.82 Hgb 13.8 Hct 40.6 MCV 84.2 MCH 28.6 MCHC 33.9 RDW 15.3 Plt Count 173 MPV 7.7 Absolute Neuts (auto) 6.2 Neutrophils % 74.0 Lymphocytes % 15.4 Monocytes % 9.6 Eosinophils % 0.7 Basophils % 0.3 Nucleated RBC % 0 Sodium 139 Potassium 4.2 Chloride 103 Carbon Dioxide 32 Anion Gap 5 L BUN 18 Creatinine 0.9 Creat Clearance w eGFR > 60 Random Glucose 93 Lactic Acid Calcium 8.6 Total Bilirubin 0.9 AST 27 ALT 29 Alkaline Phosphatase 85 B-Natriuretic Peptide 962.2 H Total Protein 7.6 Albumin 3.9 Urine Color Straw Urine Appearance Clear Urine pH 7.0 Ur Specific [place] 1.011 Urine Protein Negative Urine Glucose (UA) Negative Urine Ketones Trace H Urine Blood Negative Urine Nitrite Negative Urine Bilirubin Negative Urine Urobilinogen 2.0 Ur Leukocyte Esterase Negative 09/10/18 13:07 WBC RBC Hgb Hct MCV MCH MCHC RDW Plt Count MPV Absolute Neuts (auto) Neutrophils % Lymphocytes % Monocytes % Eosinophils % Basophils % Nucleated RBC % Sodium Potassium Chloride Carbon Dioxide Anion Gap BUN Creatinine Creat Clearance w eGFR Random Glucose Lactic Acid 0.8 Calcium Total Bilirubin AST ALT Alkaline Phosphatase B-Natriuretic Peptide Total Protein Albumin Urine Color Urine Appearance Urine pH Ur Specific [place] Urine Protein Urine Glucose (UA) Urine Ketones Urine Blood Urine Nitrite Urine Bilirubin Urine Urobilinogen Ur Leukocyte Esterase ASSESSMENT/PLAN: Patient is a 73 year old male with past medical history of Hypertension, CAD s/ p stents, Psych disorder (not on any meds) presented to the ED accompanied with roommate with the chief complaint of worsening of urinary retention and gait instability. # Urinary symptoms, dementia and gait instability-concern for NPH MRI of brain ordered Renal/Bladder ultrasound: Post void urine 21 cc. Urinary symptoms unlikely due to UTI (UA normal), could be due to NPH vs psych issues. # H/o Psychiatric disorder Unknown which type he had. Doesn't f/up with psychiatrist. Was admitted for a month at a psych facility in 2009. Is disheveled, vigorous appetite, not taking care of self, doesn't take shower, frequent urination without any pathology Psych consult requested. # Bilateral swelling of legs r/o CHF BNP: 962 ECHO ordered Will start Lasix 40mg IV Daily # CAD s/p stents not on any meds # FEN Can tolerate PO Electrolytes WNL Sodium controlled diet # Prophylaxis For DVT: on Heparin 5000 IU sq TID FoR GI: Not indicated # Code Status: Full Code Illness, Investigation and Plan of care explained to the patient. He verbalized understanding. Case discussed with Dr. Ricketts. Problem List - Problem (1) Abnormal urinary stream Code(s): R39.198 - OTHER DIFFICULTIES WITH MICTURITION (2) Altered mental status Code(s): R41.82 - ALTERED MENTAL STATUS, UNSPECIFIED (3) Dementia Code(s): F03.90 - UNSPECIFIED DEMENTIA WITHOUT BEHAVIORAL DISTURBANCE (4) Edema Code(s): R60.9 - EDEMA, UNSPECIFIED (5) Hypertension Code(s): I10 - ESSENTIAL (PRIMARY) HYPERTENSION Qualifiers: Hypertension type: unspecified Qualified Code(s): I10 - Essential (primary ) hypertension Visit type - Emergency Visit Emergency Visit: Yes ED Registration Date: 09/10/18 Care time: The patient presented to the Emergency Department on the above date and was hospitalized for further evaluation of their emergent condition. - New Patient This patient is new to me today: Yes Date on this admission: 09/10/18 - Critical Care Critical Care patient: No
--- NOTE | 2018-09-10 15:34 | PN ---
Teaching Attending Note Name of Resident: Polly Chau ATTENDING PHYSICIAN STATEMENT I saw and evaluated the patient. I reviewed the resident's note and discussed the case with the resident. I agree with the resident's findings and plan as documented. SUBJECTIVE: Mr Cuellar is without complaint. Denies cp, sob, n/v, or any other concerns OBJECTIVE: Gen: nad, malodorous Pulm: ctab w/o w/r/r CV: rrr w/o m/r/g Abd: +bs, s/nt/nd Ext: 2+ BLE edema ASSESSMENT AND PLAN: -concern for NPH -obtain MRI brain -steady decline in mental status -per friend at bedside, has history of obsessive compulsive disorder -will consult psychiatry -obtain ECHO for BLE edema -lasix 40mg IV daily -fall risk precautions -continue amlodipine, but may benefit from change considering edema -CM/SW consult for outpatient resources Problem List - Problems (1) Altered mental status Code(s): R41.82 - ALTERED MENTAL STATUS, UNSPECIFIED (2) Dementia Code(s): F03.90 - UNSPECIFIED DEMENTIA WITHOUT BEHAVIORAL DISTURBANCE (3) Edema Code(s): R60.9 - EDEMA, UNSPECIFIED (4) Hypertension Code(s): I10 - ESSENTIAL (PRIMARY) HYPERTENSION Qualifiers: Hypertension type: unspecified Qualified Code(s): I10 - Essential (primary ) hypertension
--- NOTE | 2018-09-10 15:39 | EKG ---
Test Reason : Blood Pressure : / mmHG Vent. Rate : 058 BPM Atrial Rate : 058 BPM P-R Int : 220 ms QRS Dur : 112 ms QT Int : 442 ms P-R-T Axes : 051 -57 061 degrees QTc Int : 433 ms SINUS BRADYCARDIA WITH 1ST DEGREE A-V BLOCK LEFT ANTERIOR FASCICULAR BLOCK VOLTAGE CRITERIA FOR LEFT VENTRICULAR HYPERTROPHY CANNOT RULE OUT SEPTAL INFARCT (CITED ON OR BEFORE 20-NOV-2016) ABNORMAL ECG WHEN COMPARED WITH ECG OF 10-JUL-2018 10:39, NO SIGNIFICANT CHANGE WAS FOUND Confirmed by KATIANA SOTO MD ([id number]) on 09/10/2018 3:39:48 PM Referred By: Confirmed By:KATIANA SOTO MD
[2018-09-10] MEDS: HEPARIN NA (PORCINE) 5,000 UNITS/ML 1ML VIAL SQ SCH (21:34)
[2018-09-11 03:12] VITALS: BMI 26.8
[2018-09-11] MEDS: HEPARIN NA (PORCINE) 5,000 UNITS/ML 1ML VIAL SQ SCH ×3 (05:40→22:12)
[2018-09-11 07:27] LABS: HEMATOCRIT 43.1 % (35.4-49); HEMOGLOBIN 13.7 GM/dL (11.7-16.9); MCH 27.2 pg (25.7-33.7); MCHC 31.7 g/dl (32.0-35.9); MEAN CELL VOLUME 85.8 fl (80-96); MEAN PLT VOLUME 7.8 fl (7.5-11.1); PLATELET COUNT 154 K/MM3 (134-434); RBC 5.03 M/mm3 (4.00-5.60); RDW 15.2 % (11.9-15.9); WHITE BLOOD COUNT 7.8 K/mm3 (4.0-10.0)
[2018-09-11 08:11] LABS: ANION GAP 7 MMOL/L (8-16); BLOOD UREA NITROGEN 18 mg/dL (7-18); CALCIUM 8.2 mg/dL (8.5-10.1); CHLORIDE 104 mmol/L (98-107); CO2 28 mmol/L (21-32); CREATININE 0.8 mg/dL (0.55-1.3); GLUCOSE,RANDOM 87 mg/dL (74-106); MAGNESIUM 2.5 mg/dL (1.8-2.4); PHOSPHOROUS 3.1 mg/dL (2.5-4.9); POTASSIUM 4.1 mmol/L (3.5-5.1); SODIUM 139 mmol/L (136-145)
[2018-09-11] MEDS: amLODIPine BESYLATE 5 MG TABLET (FP) PO SCH (09:49)
[2018-09-11] MEDS: FUROSEMIDE 40 MG/4 ML INJECTABLE VIAL IVPUSH SCH (09:49)
[2018-09-11 09:51] LABS: CHOLESTEROL 145 mg/dL (50-200); HDL CHOLESTEROL 41 mg/dL (40-60); TRIGLYCERIDES 71 mg/dL (0-150)
--- NOTE | 2018-09-11 11:33 | PN ---
Physical Exam: SUBJECTIVE: Patient seen and examined at bed side this morning. No complaints. Feels better. Denies chest pain, sob, palpitation, cough, abdominal pain, nausea or vomiting. Urinating frequently as per RN, using Urinal. BM this morning. Refusing to take shower. No acute overnight events. OBJECTIVE: Vital Signs Period Temp Pulse Resp BP Sys/Dow Pulse Ox Last 24 Hr 98.1 F-98.4 F 56-63 18-24 141-154/60-81 95-98 GENERAL: Elderly male, dishelved, Awake, alert, and fully oriented, in no acute distress. HEAD: Normal with no signs of trauma. EYES: EOM intact, no pallor or icterus. EARS, NOSE, THROAT: Ears normal. Moist mucous membranes, poor dentition. NECK: Supple, no JVD LUNGS: Breath sounds equal, clear to auscultation bilaterally. No wheezes, and no crackles. No accessory muscle use. HEART: Regular rate and rhythm, normal S1 and S2 without murmur. ABDOMEN: Soft, nontender, no organomegaly. RECTAL EXAM: Denied GENITALS/INGUINAL AREA: Hernia + likely compressing the bladder, small penis MUSCULOSKELETAL: Normal range of motion at all joints. No bony deformities or tenderness. No CVA tenderness. UPPER EXTREMITIES: 2+ pulses, warm, well-perfused. No cyanosis. No clubbing. No peripheral edema. LOWER EXTREMITIES: 2+ pulses, warm, well-perfused. No calf tenderness. B/L pitting peripheral edema. NEUROLOGICAL: No facial droop. Normal speech. Gait not observed. PSYCHIATRIC: Cooperative. Good eye contact. Flat affect SKIN: Warm, dry, normal turgor, no rashes or lesions noted, normal capillary refill. Laboratory Results - last 24 hr 09/10/18 09/10/18 09/10/18 13:02 13:07 13:07 WBC 8.3 RBC 4.82 Hgb 13.8 Hct 40.6 MCV 84.2 MCH 28.6 MCHC 33.9 RDW 15.3 Plt Count 173 MPV 7.7 Absolute Neuts (auto) 6.2 Neutrophils % 74.0 Lymphocytes % 15.4 Monocytes % 9.6 Eosinophils % 0.7 Basophils % 0.3 Nucleated RBC % 0 Sodium 139 Potassium 4.2 Chloride 103 Carbon Dioxide 32 Anion Gap 5 L BUN 18 Creatinine 0.9 Creat Clearance w eGFR > 60 Random Glucose 93 Hemoglobin A1c % Lactic Acid Calcium 8.6 Phosphorus Magnesium Total Bilirubin 0.9 AST 27 ALT 29 Alkaline Phosphatase 85 Troponin I B-Natriuretic Peptide 962.2 H Total Protein 7.6 Albumin 3.9 Triglycerides Cholesterol Total LDL Cholesterol HDL Cholesterol Vitamin B12 259 Serum Folate 18 H Urine Color Straw Urine Appearance Clear Urine pH 7.0 Ur Specific [place] 1.011 Urine Protein Negative Urine Glucose (UA) Negative Urine Ketones Trace H Urine Blood Negative Urine Nitrite Negative Urine Bilirubin Negative Urine Urobilinogen 2.0 Ur Leukocyte Esterase Negative RPR Titer 09/10/18 09/10/18 09/10/18 13:07 13:07 17:05 WBC RBC Hgb Hct MCV MCH MCHC RDW Plt Count MPV Absolute Neuts (auto) Neutrophils % Lymphocytes % Monocytes % Eosinophils % Basophils % Nucleated RBC % Sodium Potassium Chloride Carbon Dioxide Anion Gap BUN Creatinine Creat Clearance w eGFR Random Glucose Hemoglobin A1c % Lactic Acid 0.8 Calcium Phosphorus Magnesium Total Bilirubin AST ALT Alkaline Phosphatase Troponin I < 0.02 B-Natriuretic Peptide Total Protein Albumin Triglycerides Cholesterol Total LDL Cholesterol HDL Cholesterol Vitamin B12 Serum Folate Urine Color Urine Appearance Urine pH Ur Specific [place] Urine Protein Urine Glucose (UA) Urine Ketones Urine Blood Urine Nitrite Urine Bilirubin Urine Urobilinogen Ur Leukocyte Esterase RPR Titer Nonreactive 09/11/18 09/11/18 09/11/18 06:15 06:15 06:15 WBC 7.8 RBC 5.03 Hgb 13.7 Hct 43.1 MCV 85.8 MCH 27.2 MCHC 31.7 L RDW 15.2 Plt Count 154 MPV 7.8 Absolute Neuts (auto) Neutrophils % Lymphocytes % Monocytes % Eosinophils % Basophils % Nucleated RBC % Sodium 139 Potassium 4.1 Chloride 104 Carbon Dioxide 28 Anion Gap 7 L BUN 18 Creatinine 0.8 Creat Clearance w eGFR > 60 Random Glucose 87 Hemoglobin A1c % 5.6 Lactic Acid Calcium 8.2 L Phosphorus 3.1 Magnesium 2.5 H Total Bilirubin AST ALT Alkaline Phosphatase Troponin I B-Natriuretic Peptide Total Protein Albumin Triglycerides 71 Cholesterol 145 Total LDL Cholesterol 88 HDL Cholesterol 41 Vitamin B12 Serum Folate Urine Color Urine Appearance Urine pH Ur Specific [place] Urine Protein Urine Glucose (UA) Urine Ketones Urine Blood Urine Nitrite Urine Bilirubin Urine Urobilinogen Ur Leukocyte Esterase RPR Titer Active Medications Generic Name Dose Route Start Last Admin Trade Name Freq PRN Reason Stop Dose Admin Amlodipine Besylate 5 mg 09/11/18 10:00 09/11/18 09:49 Norvasc - PO 5 mg DAILY LILIYA Administration Furosemide 40 mg 09/10/18 15:15 09/11/18 09:49 Lasix Injection - IVPUSH 40 mg DAILY LILIYA Administration Heparin Sodium (Porcine) 5,000 unit 09/10/18 22:00 09/11/18 05:40 Heparin - SQ 5,000 unit TID LILIYA Administration ASSESSMENT/PLAN: Patient is a 73 year old male with past medical history of Hypertension, CAD s/ p stents, Psych disorder (not on any meds) presented to the ED accompanied with roommate with the chief complaint of worsening of urinary retention and gait instability. # Increased urinary frequency UA normal. Low suspicion for UTI. Increased frequency could be due to hernia compressing the bladder. Will consider surgical eval. Renal/Bladder ultrasound: Post void urine 21 cc. # Urinary symptoms, dementia and gait instability-concern for NPH MRI of brain ordered Renal/Bladder ultrasound: Post void urine 21 cc. Urinary symptoms unlikely due to UTI (UA normal), could be due to NPH vs psych issues. RPR non reactive. Vit b12 normal. # H/o Psychiatric disorder Was taking Clonazepam 0.5 mg in 2010 but never filled. Unknown which type he had. Doesn't f/up with psychiatrist. Was admitted for a month at a psych facility in 2009. Is disheveled, vigorous appetite, not taking care of self, doesn't take shower, frequent urination without any pathology Psych consult requested. # Bilateral swelling of legs r/o CHF BNP: 962 ECHO done this morning, report pending Continue Lasix 40mg IV Daily # CAD s/p stents not on any meds # Normal A1c 5.6, Lipid profile normal. # FEN Can tolerate PO Electrolytes WNL Sodium controlled diet # Prophylaxis For DVT: on Heparin 5000 IU sq TID FoR GI: Not indicated # Code Status: Full Code Illness, Investigation and Plan of care explained to the patient. He verbalized understanding. Case to be discussed with Dr. Ricketts. Problem List - Problems (1) Abnormal urinary stream Code(s): R39.198 - OTHER DIFFICULTIES WITH MICTURITION (2) Altered mental status Code(s): R41.82 - ALTERED MENTAL STATUS, UNSPECIFIED Qualifiers: Altered mental status type: unspecified Qualified Code(s): R41.82 - Altered mental status, unspecified (3) Dementia Code(s): F03.90 - UNSPECIFIED DEMENTIA WITHOUT BEHAVIORAL DISTURBANCE (4) Edema Code(s): R60.9 - EDEMA, UNSPECIFIED (5) Hypertension Code(s): I10 - ESSENTIAL (PRIMARY) HYPERTENSION Qualifiers: Hypertension type: essential hypertension Qualified Code(s): I10 - Essential (primary) hypertension Visit type - Emergency Visit Emergency Visit: Yes ED Registration Date: 09/11/18 Care time: The patient presented to the Emergency Department on the above date and was hospitalized for further evaluation of their emergent condition. - New Patient This patient is new to me today: No - Critical Care Critical Care patient: No - Discharge Referral Referred to [facility] Med P.C.: No
--- NOTE | 2018-09-11 14:36 | CON.PSY ---
Psychiatry Consult Chief Complaint: 73 year old male with ahistory of Dementia who apparantly has been unkempt and non compliant at home, came with UTI. patient seen for agitated behaviour. Symptoms: reports: Memory Impairment, Restlessness - Previous Psychiatric Treatment Outpatient: None Inpatient: None - Previous Substance Abuse Treatment Outpatient: None (NO DETAILS), More than 6 mos ago Inpatient: None, One prior admission - Current Medications Current Medications: Active Medications Amlodipine Besylate (Norvasc -) 5 mg PO DAILY [facility] Last Admin: 09/11/18 09:49 Dose: 5 mg Furosemide (Lasix Injection -) 40 mg IVPUSH DAILY [facility] Last Admin: 09/11/18 09:49 Dose: 40 mg Heparin Sodium (Porcine) (Heparin -) 5,000 unit SQ TID [facility] Last Admin: 09/11/18 05:40 Dose: 5,000 unit - Allergies Allergies: Allergies Allergy/AdvReac Type Severity Reaction Status Date / Time No Known Allergies Allergy Verified 07/10/18 08:58 - Current Living Status Usual Living Arrangement: With Significant Other - Current Mental Status Evaluation Appearance: Disheveled Attitude: Guarded - Affect Affect: Labile Appropriateness: Not Appropriate - Mood Mood: Irritable - Speech/Language Expressive: Coherent - Psychomotor Activity Psychomotor Activity: Hyperactive - Thought Process Thought Process: Circumstantial - Thought Content Hallucinations: Absent Delusions: Absent - Self Perception Self Perception: No Impairment - Cognition Attention: Alert Orientation: Time Memory, Immediate Recall: Intact Memory, Short Term: 2/3 Memory, Remote with Promptin/3 - Concentration Serial Sevens Intact: No Simple Calculations Intact: No - Abstraction Proverb Interpretation: Impaired Judgement: Minimally Impaired - Insight Insight: Impaired - Impulse Control Impulse Control: Minimally Impaired - Suicidal Ideation Suicidal Ideation: No - Homicidal Ideation Homicidal Ideation: No Assessment/Plan 1) sTART zYPREXA 5NG PO HS FOR AGGRESSIVE BEHAVIOUR. 2) DISCHRGE ALEXANDER WHEN MRDICALLY CLEAR.
--- NOTE | 2018-09-11 14:42 | PN ---
Teaching Attending Note Name of Resident: Polly Chau ATTENDING PHYSICIAN STATEMENT I saw and evaluated the patient. I reviewed the resident's note and discussed the case with the resident. I agree with the resident's findings and plan as documented. SUBJECTIVE: Mr Cuellar remains without complaint. Denies cp, sob, n/v. OBJECTIVE: Gen: nad, malodorous Pulm: ctab w/o w/r/r CV: rrr w/o m/r/g Abd: +bs, s/nt/nd Ext: 3+ BLE pitting edema ASSESSMENT AND PLAN: -will make inpatient today -ECHO reviewed -MRI pending -appreciate psychiatry assistance -start zyprexa -continue lasix -continue amlodipine Problem List - Problems (1) Altered mental status Code(s): R41.82 - ALTERED MENTAL STATUS, UNSPECIFIED (2) Dementia Code(s): F03.90 - UNSPECIFIED DEMENTIA WITHOUT BEHAVIORAL DISTURBANCE (3) Edema Code(s): R60.9 - EDEMA, UNSPECIFIED (4) Hypertension Code(s): I10 - ESSENTIAL (PRIMARY) HYPERTENSION Qualifiers: Hypertension type: unspecified Qualified Code(s): I10 - Essential (primary ) hypertension
--- NOTE | 2018-09-11 17:01 | ECHO ---
Name: KWABENA PATRICK Exam:Adult Echocardiogram Study Date: 09/11/2018 08:58 AM Age: 73 yrs Reason For Study: Ejection Fraction, Regional Wall Motion Height: 70 in Weight: 180 lb BSA: 2.0 m2 MMode/2D Measurements & Calculations IVSd: 1.00 cm ACS: 1.8 cm LVIDd: 3.6 cm LVIDs: 3.0 cm LVPWd: 1.4 cm EDV(Teich): 53.4 ml LVOT diam: 2.0 cm ESV(Teich): 35.1 ml Doppler Measurements & Calculations AI P1/2t: 585.1 msec AI max josh: 384.3 cm/sec AI max P.1 mmHg AI dec slope: 192.4 cm/sec2 Med Peak E' Josh: 6.3 cm/sec Lat Peak E' Josh: 6.0 cm/sec Procedure A two-dimensional transthoracic echocardiogram with color flow and Doppler was performed. The study w as technically difficult with many images being suboptimal in quality. The patient was in normal sinus r hythm during the exam. Left Ventricle There is mild concentric left ventricular hypertrophy. Left ventricular systolic function is normal. Ejection Fraction = 55%. E/A reversal consistent with but not diagnostic of poor LV compliance. Right Ventricle The right ventricle is not well visualized. The right ventricle is grossly normal size. The right rhoda tricular systolic function is grossly normal. Atria The left atrium is mildly dilated. Mitral Valve The mitral valve is normal. There is trace mitral regurgitation. Tricuspid Valve The tricuspid valve is normal. No tricuspid regurgitation. Aortic Valve The aortic valve is not well visualized. The aortic valve opens well. Mild aortic regurgitation. Pulmonic Valve The pulmonic valve is not well visualized. The pulmonic valve is not well seen, but is grossly normal . Mild pulmonic valvular regurgitation. Great Vessels The aortic root is normal size. Pericardium/Pleura There is no pericardial effusion. Interpretation Summary There is mild concentric left ventricular hypertrophy. Left ventricular systolic function is normal. Ejection Fraction = 55%. E/A reversal consistent with but not diagnostic of poor LV compliance The right ventricular systolic function is grossly normal. The left atrium is mildly dilated. There is trace mitral regurgitation. Mild aortic regurgitation. Mild pulmonic valvular regurgitation. There is no pericardial effusion. MD Tim Mcghee 09/11/2018 05:00 PM
--- NOTE | 2018-09-11 18:17 | CONSULT ---
Consult Consult Specialty:: General Surgery Referred by:: Dr. Ricketts Reason for Consultation:: inguinal hernias, difficulty with urination - History of Present Illness Chief Complaint: difficulty peeing History of Present Illness: 73yoM with h/o psychiatric issues (unclear, but per chart may be OCD), HTN, CAD s/p stents in past, only surgery was tonsillectomy, in hospital for problems with urination, which by patient's report are now improved. He states urine wasn 't "coming out right." He notes that he has been better "on the medication" they are giving him (lasix), and is able to void, does feel he can empty his bladder. Per nurse, he goes frequently, as per admission notes. Primary team noted likely hernias, and asked surgery to evaluate, partly in case they could be impacting his urinary function. He says he has had his prostate evaluated, but not recently, until this admission, when medical team is checking on that. He denies history of constipation or diarrhea, last BM was this morning. He does not lift heavy things. He denies pain in groins or anywhere else. He indicates that he rarely lies flat, so does not know if the bulges ever go all the way back in. He had not noticed bulging in his groins, but when examined, does acknowledge that the palpable hernias have "probably been there for a long time." They do not bother him. He is seen and examined resting comfortably in bed. - History Source History Provided By: Patient, Medical Record Limitations to Obtaining History: Poor Historian - Past Medical History Cardio/Vascular: Yes: CAD, HTN Psych: Yes: Other (?OCD) - Past Surgical History Past Surgical History: Yes: Stent (coronary in past), Tonsillectomy - Alcohol/Substance Use Hx Alcohol Use: No History of Substance Use: reports: None - Smoking History Smoking history: Never smoked Have you smoked in the past 12 months: No - Social History Usual Living Arrangement: With Significant Other ADL: Independent Home Medications - Allergies Allergies/Adverse Reactions: Allergies Allergy/AdvReac Type Severity Reaction Status Date / Time No Known Allergies Allergy Verified 07/10/18 08:58 - Home Medications Home Medications: Ambulatory Orders Amlodipine Besylate [Norvasc -] 5 mg PO DAILY #14 tab 07/10/18 Family Disease History - Family Disease History Family History: Unremarkable (noncontributory) Review of Systems - Review of Systems Constitutional: denies: Chills, Fever Eyes: reports: Other (wears glasses). denies: Recent Change in Vision HENT: denies: Difficult Swallowing, Throat Pain Neck: denies: Swollen Glands, Tenderness Cardiovascular: denies: Chest Pain, Palpitations Respiratory: denies: Cough, SOB Gastrointestinal: denies: Abdominal Pain, Constipation, Diarrhea, Nausea, Vomiting Genitourinary: reports: Frequency, Other ("not coming out very well"). denies: Burning, Pain, Testicular Pain Musculoskeletal: denies: Joint Pain, Joint Swelling Integumentary: denies: Change in Color, Rash Neurological: denies: Dizziness, Headache Physical Exam Vital Signs: Vital Signs Temperature 99.1 F 09/11/18 14:22 Pulse Rate 52 L 09/11/18 14:22 Respiratory Rate 18 09/11/18 14:22 Blood Pressure 126/47 L 09/11/18 14:22 O2 Sat by Pulse Oximetry (%) 98 09/11/18 09:00 Constitutional: Yes: Well Nourished, No Distress, Calm, Poor Hygeine Eyes: Yes: Conjunctiva Clear, EOM Intact, Other (glasses) HENT: Yes: Atraumatic, Normocephalic Neck: Yes: Supple, Trachea Midline Cardiovascular: Yes: Regular Rate and Rhythm Respiratory: Yes: Regular, CTA Bilaterally Gastrointestinal: Yes: Normal Bowel Sounds, Soft, Hernia (very small reducible umbilical hernia; bilateral inguinal hernias, reducible, L>R, nontender, bulging mostly above scrotum, not in it). No: Distention, Tenderness ...Rectal Exam: Yes: Deferred Renal/: Yes: Other (partially buried phallus, descended testes bilaterally). No: Incontinence (pt denies, but smells of urine), Scrotal Edema Musculoskeletal: No: Joint Stiffness, Joint Swelling Extremities: No: Cool, Cyanosis Edema: Yes Edema: LLE: 1+ (minimal, wrinkles present), RLE: 1+ (minimal, wrinkles present) Peripheral Pulses WNL: Yes Integumentary: No: Jaundice, Rash Neurological: Yes: Alert, Oriented Psychiatric: Yes: Alert, Other (flat affect, limited responses) Labs: CBC, BMP 09/11/18 06:15 12/18/18 06:15 Urine Test Results Urine Color Straw 09/10/18 13:02 Urine Appearance Clear 09/10/18 13:02 Urine pH 7.0 (5.0-8.0) 09/10/18 13:02 Ur Specific [place] 1.011 (1.010-1.035) 09/10/18 13:02 Urine Protein Negative (NEGATIVE) 09/10/18 13:02 Urine Glucose (UA) Negative (NEGATIVE) 09/10/18 13:02 Urine Ketones Trace (NEGATIVE) H 09/10/18 13:02 Urine Blood Negative (NEGATIVE) 09/10/18 13:02 Urine Nitrite Negative (NEGATIVE) 09/10/18 13:02 Urine Bilirubin Negative (<2.0 mg/dL) 09/10/18 13:02 Ur Leukocyte Esterase Negative (NEGATIVE) 09/10/18 13:02 Imaging - Results Ultrasound: Report Reviewed (bladder US noted - very small PVR, prostate not markedly enlarged) Problem List - Problems (1) Bilateral inguinal hernia without obstruction or gangrene Assessment/Plan: pt with moderate reducible bilateral inguinal hernias, asymptomatic would need CT to identify whether bladder could be sliding component of either or is present in either sac pt states he has probably had them for many years explained to patient that surgical repair is possible, and options could include open repair or laparoscopic bilateral repair he is not currently interested in surgical repair, thus imaging not required at this time doubt they have much impact on urinary difficulties consider urologic evaluation pt states his urinary difficulty has improved "with the medication" (lasix) he is able to void, and his LE edema has improved as well will sign off, please re-call if patient would like to discuss operation further Thank you for the opportunity to participate in the care of this patient. Code(s): K40.20 - BI INGUINAL HERNIA, W/O OBST OR GANGRENE, NOT SPCF RECUR Qualifiers: Recurrence: non-recurrent Qualified Code(s): K40.20 - Bilateral inguinal hernia, without obstruction or gangrene, not specified as recurrent (2) Umbilical hernia without obstruction or gangrene Code(s): K42.9 - UMBILICAL HERNIA WITHOUT OBSTRUCTION OR GANGRENE (3) Abnormal urinary stream Code(s): R39.198 - OTHER DIFFICULTIES WITH MICTURITION (4) Hypertension Code(s): I10 - ESSENTIAL (PRIMARY) HYPERTENSION Qualifiers: Hypertension type: essential hypertension Qualified Code(s): I10 - Essential (primary) hypertension (5) CAD (coronary artery disease) Code(s): I25.10 - ATHSCL HEART DISEASE OF [place] CORONARY ARTERY W/O ANG PCTRS Qualifiers: Coronary Disease-Associated Artery/Lesion type: [place] artery [place] vs. transplanted heart: [place] heart Associated angina: without angina Qualified Code(s): I25.10 - Atherosclerotic heart disease of [place] coronary artery without angina pectoris (6) Altered mental status Code(s): R41.82 - ALTERED MENTAL STATUS, UNSPECIFIED Qualifiers: Altered mental status type: unspecified Qualified Code(s): R41.82 - Altered mental status, unspecified
[2018-09-11] MEDS ORDERED: PT OWN MED DRAWER 7, Y5N ONE ×2 (19:10→21:03)
[2018-09-11] MEDS: OLANZapine 5 MG TABLET PO SCH (22:12)
[2018-09-12] MEDS: HEPARIN NA (PORCINE) 5,000 UNITS/ML 1ML VIAL SQ SCH ×3 (06:24→21:45)
[2018-09-12] MEDS: amLODIPine BESYLATE 5 MG TABLET (FP) PO SCH (11:17)
[2018-09-12] MEDS: FUROSEMIDE 40 MG/4 ML INJECTABLE VIAL IVPUSH SCH ×2 (11:17→11:18)
--- NOTE | 2018-09-12 14:13 | PN ---
Teaching Attending Note Name of Resident: Polly Chau ATTENDING PHYSICIAN STATEMENT I saw and evaluated the patient. I reviewed the resident's note and discussed the case with the resident. I agree with the resident's findings and plan as documented. SUBJECTIVE: Patient has no complaints. OBJECTIVE: Vital Signs Period Temp Pulse Resp BP Sys/Dow Pulse Ox Last 24 Hr 97.8 F-99.1 F 48-56 18-20 126-156/47-65 95-95 HEART: S1S2, RRR LUNGS: Clear ABDOMEN: Soft, non-tender, non-distended, normal BS EXTREMITIES: 1+ edema Current Medications Generic Name Dose Route Start Last Admin Trade Name Freq PRN Reason Stop Dose Admin Amlodipine Besylate 5 mg 09/11/18 10:00 09/12/18 11:17 Norvasc - PO 5 mg DAILY LILIYA Administration Furosemide 40 mg 09/10/18 15:15 09/12/18 11:18 Lasix Injection - IVPUSH 40 mg DAILY LILIYA Administration Heparin Sodium (Porcine) 5,000 unit 09/10/18 22:00 09/12/18 06:24 Heparin - SQ 5,000 unit TID LILIYA Administration Olanzapine 5 mg 09/11/18 22:00 09/11/18 22:12 Zyprexa - PO 5 mg HS LILIYA Administration ASSESSMENT AND PLAN: This is a 73 year old man with a history of HTN, CAD, stents, dementia who presented to the ED with difficulty urinating and unsteady gait. 1. Difficulty urinating - No evidence of UTI, urinary retention 2. Leg edema - Likely venous insufficiency - Echo shows mild concentric LVH, LVEF 55%, E/A reversal, normal RV systolic function, mildly dilated LA, trace MR, mild AR, mild LA - Venous dopplers pending - Continue Lasix 3. HTN - Continue Norvasc, Lasix 4. CAD, history of stents 5. Bilateral inguinal hernias - Reducible, asymptomatic - Does not want surgery 6. Dementia with agitation - No evidence of NPH on MRI which shows moderate atrophy, ventricular dilatation, periventricular microvascular ischemic changes - Zyprexa started - Neurology consult
--- NOTE | 2018-09-12 15:38 | PN ---
Physical Exam: SUBJECTIVE: Patient seen and examined at bed side this morning. No complaints. Denies chest pain, sob, palpitation, cough, abdominal pain, nausea or vomiting. No acute overnight events. OBJECTIVE: Vital Signs Period Temp Pulse Resp BP Sys/Dow Pulse Ox Last 24 Hr 97.8 F-98.7 F 48-56 18-20 132-156/53-65 95-95 GENERAL: Elderly male, dishelved, standing, Awake, alert, and fully oriented, in no acute distress. HEAD: Normal with no signs of trauma. EYES: EOM intact, no pallor or icterus. EARS, NOSE, THROAT: Ears normal. Moist mucous membranes, poor dentition. NECK: Supple, no JVD LUNGS: Breath sounds equal, clear to auscultation bilaterally. No wheezes, and no crackles. No accessory muscle use. HEART: Regular rate and rhythm, normal S1 and S2 without murmur. ABDOMEN: Soft, nontender, no organomegaly. RECTAL EXAM: Denied GENITALS/INGUINAL AREA: Hernia + likely compressing the bladder, small penis MUSCULOSKELETAL: Normal range of motion at all joints. No bony deformities or tenderness. No CVA tenderness. UPPER EXTREMITIES: 2+ pulses, warm, well-perfused. No cyanosis. No clubbing. No peripheral edema. LOWER EXTREMITIES: 2+ pulses, warm, well-perfused. No calf tenderness. B/L pitting peripheral edema. NEUROLOGICAL: No facial droop. Normal speech. Gait not observed. PSYCHIATRIC: Cooperative. Good eye contact. Flat affect SKIN: Warm, dry, normal turgor, no rashes or lesions noted, normal capillary refill. Active Medications Generic Name Dose Route Start Last Admin Trade Name Marco PRN Reason Stop Dose Admin Amlodipine Besylate 5 mg 09/11/18 10:00 09/12/18 11:17 Norvasc - PO 5 mg DAILY LILIYA Administration Furosemide 40 mg 09/10/18 15:15 09/12/18 11:18 Lasix Injection - IVPUSH 40 mg DAILY LILIYA Administration Heparin Sodium (Porcine) 5,000 unit 09/10/18 22:00 09/12/18 06:24 Heparin - SQ 5,000 unit TID LILIYA Administration Olanzapine 5 mg 09/11/18 22:00 09/11/18 22:12 Zyprexa - PO 5 mg HS LILIYA Administration Renal/Bladder ultrasound: Post void urine 21 cc. MRI of brain 09/11/18: Moderate atrophy, ventricular dilatation, periventricular chronic microvascular ischemic disease changes without evidence of acute intracranial pathology.No evidence of Normal pressure hydrocephalus. ASSESSMENT/PLAN: Patient is a 73 year old male with past medical history of Hypertension, CAD s/ p stents, Psych disorder (not on any meds) presented to the ED accompanied with roommate with the chief complaint of worsening of urinary retention and gait instability. # Increased urinary frequency UA normal. Urine cultures negative. Unlikely UTI. Appreciate Dr Noriega's recommendations; to consider CT, uro eval. Patient is refusing surgical intervention at this time. Unsure if patient has the mental capacity to understand. # Urinary symptoms, dementia and gait instability-NPH ruled out. # H/o Psychiatric disorder Unknown which type he had. Doesn't f/up with psychiatrist. Was admitted for a month at a psych facility in 2009. Is disheveled, vigorous appetite, not taking care of self, doesn't take shower, frequent urination without any acute pathology Appreciate Dr. Kenny's recommendations. started on IV Olanzapine 5mg PO HS. Spoke with patient's room mate Ms. Braga who said she doesn't want him to go back home and that patient needs help. She states that " He is unreasonable. He is an educated person but doesn't make logical society decisions. I want to pass out because he smells. I am embarrassed to go out with him. Doesn't take shower or change clothes, is not bothered ". She states she spoke with the director of social services " Disha Gomez" about the above mentioned issues Psych to reevaluate to comment on the Mental capacity to decide. # Dementia Worsening Dementia as per patient's room mate. May benefit from meds. Dr. Lance consult requested. # Bilateral swelling of legs r/o CHF BNP: 962 ECHO done EF 55 %. Mild concentric hypertrophy, left ventricular systolic function normal. Trace MR, AR Pending Vascular study to r/o dvt Continue Lasix 40mg IV Daily # CAD s/p stents not on any meds # Normal A1c 5.6, Lipid profile normal. # FEN Can tolerate PO Electrolytes WNL Sodium controlled diet # Prophylaxis For DVT: on Heparin 5000 IU sq TID FoR GI: Not indicated # Code Status: Full Code Illness, Investigation and Plan of care explained to the patient. He verbalized understanding. Case discussed with Dr. Pittman. Problem List - Problems (1) Abnormal urinary stream Code(s): R39.198 - OTHER DIFFICULTIES WITH MICTURITION (2) Altered mental status Code(s): R41.82 - ALTERED MENTAL STATUS, UNSPECIFIED Qualifiers: Altered mental status type: unspecified Qualified Code(s): R41.82 - Altered mental status, unspecified (3) Dementia Code(s): F03.90 - UNSPECIFIED DEMENTIA WITHOUT BEHAVIORAL DISTURBANCE (4) Edema Code(s): R60.9 - EDEMA, UNSPECIFIED (5) Hypertension Code(s): I10 - ESSENTIAL (PRIMARY) HYPERTENSION Qualifiers: Hypertension type: essential hypertension Qualified Code(s): I10 - Essential (primary) hypertension Visit type - Emergency Visit Emergency Visit: Yes ED Registration Date: 09/11/18 Care time: The patient presented to the Emergency Department on the above date and was hospitalized for further evaluation of their emergent condition. - New Patient This patient is new to me today: No - Critical Care Critical Care patient: No - Discharge Referral Referred to [facility] Med [facility].C.: No
--- NOTE | 2018-09-12 18:52 | PN ---
Progress Note (short form) - Note Progress Note: Patient seen for Psych follow up for capacity determination. Ms: alert, oriented, makers eye contact, has constricted affect but denies any suicidal ideas or plans at this time> No acute psychotic process appears to be evident. patient refused to discuss previous [psychj Illness. patient However is able to comprehend and talk about his Hernia. Understands that he needs Surgery but does not want to have it. I have had it for long time , I dont want anything done now. REC: Patient understands the conseqences of refusing Surgery at this time, therefore He Has the Capacity to make decisions at this time. 2) Patient is not suicidal at this time. 3) discharge home when medically stable.
[2018-09-12] MEDS ORDERED: PT OWN MED DRAWER 7, Y5N ONE (20:49)
--- NOTE | 2018-09-12 21:21 | CONSULT ---
Consult - text type - Consultation Consultation Note: NEUROLOGY CONSULTATION is greatly appreciated: This 73 yo RH man with h/o HTH on amlodipine and furosamide has a distant h/o psychiatric hospitalization > 10 years age. registered phlebotomist part time project accountant living with his log-time friend, Maria Luz. Denies ETOH. Now admitted with confusion, failure to thrive, unsteady gait, and incontinence without UTI. Psychiatry consultation of Dr. Kenny read and appreciated. Now on Zyprexa 5 mg q HS P31=115, RPR -. TSH ordered. MRI of the brain (reviewed): Moderate, diffuse, atrophy with ex vacuo ventricular enlargement and microvascular changes. EXAM:No bruits. No head trauma. Cor reg. NEURO: Awake, alert. Rests with eyes closed but cooperative and opens them on command. [facility], 2017. [id number]. Recalls 2 of 3 @ 3 mis. -Glabella, snout, suck, grasps Speech sparse (essentially Yes/no) and staccato, but fluent. CN II-XII: normal without nystagmus Motor: No drift or tremor. Normal strength, bulk and tone . Normal reflexes except absent AJ's. Toes downgoing. Coord: No FTN dystaxia Sensory: Reduced vibration in the feet. Romberg - Gait: Sl wide-based and waddling. IMP: Mild B/L cerebral dysfunction (OMS, chronic) Mild ataxia with features of midline cerebellar dysfunction (?ETOH in past) but cannot r/o NPH Mild peripheral neuropathy (does not explain ataxia). SUGGEST: Check TSH Continue Zyprexa 5mg Try Thiamine 250 mg IVPB TID x 3 days Thank you very much, Triston Lance MD
[2018-09-12] MEDS: OLANZapine 5 MG TABLET PO SCH (21:44)
[2018-09-12] MEDS: THIAMINE HCL 200 MG/2 ML VIAL IVPB SCH (23:28)
[2018-09-13] MEDS: THIAMINE HCL 200 MG/2 ML VIAL IVPB SCH ×3 (05:43→22:31)
[2018-09-13] MEDS: HEPARIN NA (PORCINE) 5,000 UNITS/ML 1ML VIAL SQ SCH ×3 (05:43→22:30)
[2018-09-13] MEDS: amLODIPine BESYLATE 5 MG TABLET (FP) PO SCH (09:23)
[2018-09-13] MEDS: FUROSEMIDE 40 MG/4 ML INJECTABLE VIAL IVPUSH SCH (09:23)
--- NOTE | 2018-09-13 12:01 | PN ---
Teaching Attending Note Name of Resident: Polly Chau ATTENDING PHYSICIAN STATEMENT I saw and evaluated the patient. I reviewed the resident's note and discussed the case with the resident. I agree with the resident's findings and plan as documented. SUBJECTIVE: Patient has no complaints. He wants to go home. Denies difficulty urinating. OBJECTIVE: Vital Signs Period Temp Pulse Resp BP Sys/Dow Pulse Ox Last 24 Hr 97.7 F-98.8 F 50-59 18-20 128-162/55-70 97-98 HEART: S1S2, RRR LUNGS: Clear ABDOMEN: Soft, non-tender, non-distended, normal BS EXTREMITIES: trace edema Laboratory Results - last 24 hr 09/13/18 06:00 TSH 2.15 Current Medications Generic Name Dose Route Start Last Admin Trade Name Freq PRN Reason Stop Dose Admin Amlodipine Besylate 5 mg 09/11/18 10:00 09/13/18 09:23 Norvasc - PO 5 mg DAILY LILIYA Administration Furosemide 40 mg 09/10/18 15:15 09/13/18 09:23 Lasix Injection - IVPUSH 40 mg DAILY LILIYA Administration Heparin Sodium (Porcine) 5,000 unit 09/10/18 22:00 09/13/18 05:43 Heparin - SQ 5,000 unit TID LILIYA Administration Olanzapine 5 mg 09/11/18 22:00 09/12/18 21:44 Zyprexa - PO 5 mg HS LILIYA Administration Thiamine HCl 200 mg 09/12/18 22:00 09/13/18 05:43 Vitamin B1 Injection - IVPB 09/15/18 23:59 200 mg TID LILIYA Administration ASSESSMENT AND PLAN: This is a 73 year old man with a history of HTN, CAD, stents, dementia who presented to the ED with difficulty urinating and unsteady gait. 1. Difficulty urinating - No evidence of UTI, urinary retention 2. Leg edema - Improving - Likely venous insufficiency - Echo shows mild concentric LVH, LVEF 55%, E/A reversal, normal RV systolic function, mildly dilated LA, trace MR, mild AR, mild DE - Venous dopplers negative for DVT - Continue Lasix 3. HTN - Continue Norvasc, Lasix 4. CAD, history of stents 5. Bilateral inguinal hernias - Reducible, asymptomatic - Does not want surgery 6. Dementia with agitation, mild ataxia, mild peripheral neuropathy - No evidence of NPH on MRI which shows moderate atrophy, ventricular dilatation, periventricular microvascular ischemic changes - Continue Zyprexa - Neurology consult appreciated - TSH normal - Thiamine started
[2018-09-13] MEDS ORDERED: PT OWN MED DRAWER 7, Y5N ONE (21:56)
[2018-09-13] MEDS: OLANZapine 5 MG TABLET PO SCH (22:31)
[2018-09-14] MEDS: THIAMINE HCL 200 MG/2 ML VIAL IVPB SCH ×3 (05:43→22:14)
[2018-09-14] MEDS: HEPARIN NA (PORCINE) 5,000 UNITS/ML 1ML VIAL SQ SCH ×3 (05:43→22:14)
[2018-09-14] MEDS: FUROSEMIDE 40 MG/4 ML INJECTABLE VIAL IVPUSH SCH (09:04)
[2018-09-14] MEDS: amLODIPine BESYLATE 5 MG TABLET (FP) PO SCH (09:04)
--- NOTE | 2018-09-14 13:39 | CONSULT ---
Consult - Past Medical History Cardio/Vascular: Yes: CAD, HTN Psych: Yes: Other (?OCD) - Past Surgical History Past Surgical History: Yes: Stent (coronary in past), Tonsillectomy - Alcohol/Substance Use Hx Alcohol Use: No History of Substance Use: reports: None - Smoking History Smoking history: Never smoked Have you smoked in the past 12 months: No - Social History Usual Living Arrangement: With Significant Other ADL: Independent Home Medications - Allergies Allergies/Adverse Reactions: Allergies Allergy/AdvReac Type Severity Reaction Status Date / Time No Known Allergies Allergy Verified 07/10/18 08:58 - Home Medications Home Medications: Ambulatory Orders Amlodipine Besylate [Norvasc -] 5 mg PO DAILY #14 tab 07/10/18 Physical Exam Vital Signs: Vital Signs Temperature 98.2 F 09/14/18 09:00 Pulse Rate 52 L 09/14/18 09:00 Respiratory Rate 18 09/14/18 12:27 Blood Pressure 142/63 09/14/18 09:00 O2 Sat by Pulse Oximetry (%) 97 09/14/18 12:27 Labs: CBC, BMP 09/11/18 06:15 09/11/18 06:15
--- NOTE | 2018-09-14 14:31 | PN ---
Teaching Attending Note Name of Resident: Polly Chau ATTENDING PHYSICIAN STATEMENT I saw and evaluated the patient. I reviewed the resident's note and discussed the case with the resident. I agree with the resident's findings and plan as documented. SUBJECTIVE: No complaints. OBJECTIVE: Vital Signs Period Temp Pulse Resp BP Sys/Dow Pulse Ox Last 24 Hr 97.5 F-98.6 F 48-56 18-20 126-154/48-66 97-97 HEART: S1S2, RRR LUNGS: Clear ABDOMEN: Soft, non-tender, non-distended, normal BS EXTREMITIES: No edema. Toe nails mycotic and overgrown Current Medications Generic Name Dose Route Start Last Admin Trade Name Freq PRN Reason Stop Dose Admin Amlodipine Besylate 5 mg 09/11/18 10:00 09/14/18 09:04 Norvasc - PO 5 mg DAILY LILIYA Administration Furosemide 40 mg 09/10/18 15:15 09/14/18 09:04 Lasix Injection - IVPUSH 40 mg DAILY LILIYA Administration Heparin Sodium (Porcine) 5,000 unit 09/10/18 22:00 09/14/18 05:43 Heparin - SQ 5,000 unit TID LILIYA Administration Olanzapine 5 mg 09/11/18 22:00 09/13/18 22:31 Zyprexa - PO 5 mg HS LILIYA Administration Thiamine HCl 200 mg 09/12/18 22:00 09/14/18 05:43 Vitamin B1 Injection - IVPB 09/15/18 23:59 200 mg TID LILIYA Administration ASSESSMENT AND PLAN: This is a 73 year old man with a history of HTN, CAD, stents, dementia who presented to the ED with difficulty urinating and unsteady gait. 1. Difficulty urinating - No evidence of UTI, urinary retention 2. Leg edema - Improved - Likely venous insufficiency - Echo shows mild concentric LVH, LVEF 55%, E/A reversal, normal RV systolic function, mildly dilated LA, trace MR, mild AR, mild IN - Venous dopplers negative for DVT - Continue Lasix - change to PO 3. HTN - Continue Norvasc, Lasix 4. CAD, history of stents 5. Bilateral inguinal hernias - Reducible, asymptomatic - Does not want surgery 6. Dementia with agitation, mild ataxia, mild peripheral neuropathy - No evidence of NPH on MRI which shows moderate atrophy, ventricular dilatation, periventricular microvascular ischemic changes - Continue Zyprexa - TSH normal - Continue Thiamine 7. Onychomycosis of toenails - Podiatry eval
--- NOTE | 2018-09-14 18:26 | PN ---
Physical Exam: SUBJECTIVE: Patient seen and examined at bed side this morning. No complaints. Denies chest pain, sob, palpitation, cough, abdominal pain, nausea or vomiting. No acute overnight events. OBJECTIVE: Vital Signs Period Temp Pulse Resp BP Sys/Dow Pulse Ox Last 24 Hr 97.5 F-98.6 F 47-52 18-20 126-145/48-63 97-97 GENERAL: Elderly male, dishelved, standing, Awake, alert, and fully oriented, in no acute distress. HEAD: Normal with no signs of trauma. EYES: EOM intact, no pallor or icterus. EARS, NOSE, THROAT: Ears normal. Moist mucous membranes, poor dentition. NECK: Supple, no JVD LUNGS: Breath sounds equal, clear to auscultation bilaterally. No wheezes, and no crackles. No accessory muscle use. HEART: Regular rate and rhythm, normal S1 and S2 without murmur. ABDOMEN: Soft, nontender, no organomegaly. RECTAL EXAM: Denied GENITALS/INGUINAL AREA: Hernia + likely compressing the bladder, small penis MUSCULOSKELETAL: Normal range of motion at all joints. No bony deformities or tenderness. No CVA tenderness. UPPER EXTREMITIES: 2+ pulses, warm, well-perfused. No cyanosis. No clubbing. No peripheral edema. LOWER EXTREMITIES: 2+ pulses, warm, well-perfused. No calf tenderness. B/L pitting peripheral edema-improving. Long toe nails + causing abrasions on the second L digit. NEUROLOGICAL: No facial droop. Normal speech. Gait normal. PSYCHIATRIC: Cooperative. Good eye contact. Flat affect SKIN: Warm, dry, normal turgor, no rashes or lesions noted, normal capillary refill. Active Medications Generic Name Dose Route Start Last Admin Trade Name Freq PRN Reason Stop Dose Admin Amlodipine Besylate 5 mg 09/11/18 10:00 09/14/18 09:04 Norvasc - PO 5 mg DAILY LILIYA Administration Furosemide 40 mg 09/10/18 15:15 09/14/18 09:04 Lasix Injection - IVPUSH 40 mg DAILY LILIYA Administration Heparin Sodium (Porcine) 5,000 unit 09/10/18 22:00 09/14/18 14:46 Heparin - SQ 5,000 unit TID LILIYA Administration Olanzapine 5 mg 09/11/18 22:00 09/13/18 22:31 Zyprexa - PO 5 mg HS LILIYA Administration Thiamine HCl 200 mg 09/12/18 22:00 09/14/18 14:46 Vitamin B1 Injection - IVPB 09/15/18 23:59 200 mg TID LILIYA Administration ASSESSMENT/PLAN: Renal/Bladder ultrasound: Post void urine 21 cc. MRI of brain 09/11/18: Moderate atrophy, ventricular dilatation, periventricular chronic microvascular ischemic disease changes without evidence of acute intracranial pathology.No evidence of Normal pressure hydrocephalus. ASSESSMENT/PLAN: Patient is a 73 year old male with past medical history of Hypertension, CAD s/ p stents, Psych disorder (not on any meds) presented to the ED accompanied with roommate with the chief complaint of worsening of urinary retention and gait instability. # Abrasion on the L second digit Likely secondary to long great toe nails, unhygienic Podiatry consult requested, awaiting their recommendations. # Dementia with mild B/L cerebral dysfunction IV Thiamine 250mg TID x 3 days. TSH normal Appreciate Dr. Lance's recommendations. # H/o Psychiatric disorder Unknown which type he had. Doesn't f/up with psychiatrist. Was admitted for a month at a psych facility in 2009. \ Appreciate Dr. Kenny's recommendations. Has mental capacity to decide. Continue Zyprexa 5mg Is disheveled, vigorous appetite, not taking care of self, doesn't take shower, frequent urination without any acute pathology Doesn't want to take shower. # Inguinal hernia Appreciate Dr Noriega's recommendations; to consider CT, uro eval. Patient is refusing surgical intervention at this time. Unsure if patient has the mental capacity to understand. # Urinary frequency-improving. # Bilateral swelling of legs improving with diuresis BNP: 962. ECHO done EF 55 %. Mild concentric hypertrophy, left ventricular systolic function normal. Trace MR, AR DVT ruled out. Continue Lasix 40mg IV Daily # CAD s/p stents not on any meds # Normal A1c 5.6, Lipid profile normal. # FEN Can tolerate PO Electrolytes WNL Sodium controlled diet # Prophylaxis For DVT: on Heparin 5000 IU sq TID FoR GI: Not indicated # Code Status: Full Code Illness, Investigation and Plan of care explained to the patient. He verbalized understanding. Case discussed with Dr. Pittman. Problem List - Problems (1) Abnormal urinary stream Code(s): R39.198 - OTHER DIFFICULTIES WITH MICTURITION (2) Altered mental status Code(s): R41.82 - ALTERED MENTAL STATUS, UNSPECIFIED Qualifiers: Qualified Code(s): R41.82 - Altered mental status, unspecified (3) Dementia Code(s): F03.90 - UNSPECIFIED DEMENTIA WITHOUT BEHAVIORAL DISTURBANCE (4) Edema Code(s): R60.9 - EDEMA, UNSPECIFIED (5) Hypertension Code(s): I10 - ESSENTIAL (PRIMARY) HYPERTENSION Qualifiers: Qualified Code(s): I10 - Essential (primary) hypertension Visit type - Emergency Visit Emergency Visit: Yes ED Registration Date: 09/11/18 Care time: The patient presented to the Emergency Department on the above date and was hospitalized for further evaluation of their emergent condition. - New Patient This patient is new to me today: No - Critical Care Critical Care patient: No - Discharge Referral Referred to [facility] No
[2018-09-14] MEDS: OLANZapine 5 MG TABLET PO SCH (22:15)
[2018-09-15] MEDS: THIAMINE HCL 200 MG/2 ML VIAL IVPB SCH ×3 (06:15→23:21)
[2018-09-15] MEDS: HEPARIN NA (PORCINE) 5,000 UNITS/ML 1ML VIAL SQ SCH ×3 (06:16→23:22)
[2018-09-15 08:13] LABS: ANION GAP 6 MMOL/L (8-16); BLOOD UREA NITROGEN 31 mg/dL (7-18); CALCIUM 8.6 mg/dL (8.5-10.1); CHLORIDE 102 mmol/L (98-107); CO2 31 mmol/L (21-32); GLUCOSE,RANDOM 118 mg/dL (74-106); MAGNESIUM 2.7 mg/dL (1.8-2.4); POTASSIUM 4.4 mmol/L (3.5-5.1); SODIUM 138 mmol/L (136-145)
[2018-09-15] MEDS: amLODIPine BESYLATE 5 MG TABLET (FP) PO SCH (11:06)
[2018-09-15] MEDS: FUROSEMIDE 40 MG TABLET (FP) PO SCH (11:06)
--- NOTE | 2018-09-15 11:36 | PN ---
Physical Exam: SUBJECTIVE: Patient seen and examined. Patient has no complaints. OBJECTIVE: Vital Signs Period Temp Pulse Resp BP Sys/Dow Pulse Ox Last 24 Hr 98.1 F-98.5 F 47-53 18-20 126-142/51-63 95-97 GENERAL: The patient is awake, alert, and fully oriented, in no acute distress. LUNGS: Breath sounds equal, clear to auscultation bilaterally, no wheezes, no crackles, no accessory muscle use. HEART: Regular rate and rhythm, S1, S2 without murmur, rub or gallop. ABDOMEN: Soft, nontender, nondistended, normoactive bowel sounds, no guarding, no rebound, no hepatosplenomegaly, no masses. EXTREMITIES: 2+ pulses, warm, well-perfused, no edema, nycotic toenails. Laboratory Results - last 24 hr 09/15/18 06:15 Sodium 138 Potassium 4.4 Chloride 102 Carbon Dioxide 31 Anion Gap 6 L BUN 31 H Creatinine 1.0 Creat Clearance w eGFR > 60 Random Glucose 118 H Calcium 8.6 Magnesium 2.7 H Active Medications Generic Name Dose Route Start Last Admin Trade Name Freq PRN Reason Stop Dose Admin Amlodipine Besylate 5 mg 09/11/18 10:00 09/15/18 11:06 Norvasc - PO 5 mg DAILY LILIYA Administration Furosemide 40 mg 09/15/18 10:00 09/15/18 11:06 Lasix - PO 40 mg DAILY LILIYA Administration Heparin Sodium (Porcine) 5,000 unit 09/10/18 22:00 09/15/18 06:16 Heparin - SQ 5,000 unit TID LILIYA Administration Olanzapine 5 mg 09/11/18 22:00 09/14/18 22:15 Zyprexa - PO 5 mg HS LILIYA Administration Thiamine HCl 200 mg 09/12/18 22:00 09/15/18 06:15 Vitamin B1 Injection - IVPB 09/15/18 23:59 200 mg TID LILIYA Administration ASSESSMENT/PLAN: This is a 73 year old man with a history of HTN, CAD, stents, dementia who presented to the ED with difficulty urinating and unsteady gait. 1. Difficulty urinating - No evidence of UTI, urinary retention 2. Leg edema - Improved - Likely venous insufficiency - Echo shows mild concentric LVH, LVEF 55%, E/A reversal, normal RV systolic function, mildly dilated LA, trace MR, mild AR, mild AL - Venous dopplers negative for DVT - Continue Lasix PO 3. HTN - Continue Norvasc, Lasix 4. CAD, history of stents 5. Bilateral inguinal hernias - Reducible, asymptomatic - Does not want surgery 6. Dementia with agitation, mild ataxia, mild peripheral neuropathy - No evidence of NPH on MRI which shows moderate atrophy, ventricular dilatation, periventricular microvascular ischemic changes - Continue Zyprexa - TSH normal - Continue thiamine IV 7. Onychomycosis of toenails - Awaiting podiatry eval Visit type - Emergency Visit Emergency Visit: Yes ED Registration Date: 09/11/18 Care time: The patient presented to the Emergency Department on the above date and was hospitalized for further evaluation of their emergent condition. - New Patient This patient is new to me today: No - Critical Care Critical Care patient: No - Discharge Referral Referred to [facility] Med [facility].C.: No
--- NOTE | 2018-09-15 12:18 | CONSULT ---
Consult Consult Specialty:: Podiatry Reason for Consultation:: Painful fungus toe nails - History of Present Illness Chief Complaint: Painful toe nails History of Present Illness: Chronic fungal toe nails. - History Source History Provided By: Patient - Past Medical History Cardio/Vascular: Yes: CAD, HTN Psych: Yes: Other (?OCD) - Past Surgical History Past Surgical History: Yes: Stent (coronary in past), Tonsillectomy - Alcohol/Substance Use Hx Alcohol Use: No History of Substance Use: reports: None - Smoking History Smoking history: Never smoked Have you smoked in the past 12 months: No - Social History Usual Living Arrangement: With Significant Other ADL: Independent Home Medications - Allergies Allergies/Adverse Reactions: Allergies Allergy/AdvReac Type Severity Reaction Status Date / Time No Known Allergies Allergy Verified 07/10/18 08:58 - Home Medications Home Medications: Ambulatory Orders Amlodipine Besylate [Norvasc -] 5 mg PO DAILY #14 tab 07/10/18 Physical Exam Vital Signs: Vital Signs Temperature 98.2 F 09/15/18 05:00 Pulse Rate 53 L 09/15/18 05:00 Respiratory Rate 20 09/15/18 05:00 Blood Pressure 142/63 09/15/18 05:00 O2 Sat by Pulse Oximetry (%) 95 09/14/18 23:00 Extremities: Yes: Other (+tender dystrophic mycotic nails with subungual debris x 10, non palpable pulses b/l feet, +foul smelling feet) Peripheral Pulses WNL: No (non palpable) Labs: CBC, BMP 09/11/18 06:15 09/15/18 06:15 Assessment/Plan onychomycosis pain pvd Debride nails x 10 aseptic technique. Recommend better foot hygeine. Would benefit from antifungal. Recommend vascular eval for pvd. Foot care [id number].
[2018-09-15] MEDS: OLANZapine 5 MG TABLET PO SCH (23:22)
[2018-09-16] MEDS: HEPARIN NA (PORCINE) 5,000 UNITS/ML 1ML VIAL SQ SCH ×3 (06:22→21:53)
[2018-09-16 08:25] LABS: ANION GAP 4 MMOL/L (8-16); BLOOD UREA NITROGEN 34 mg/dL (7-18); CALCIUM 8.5 mg/dL (8.5-10.1); CHLORIDE 103 mmol/L (98-107); CO2 32 mmol/L (21-32); CREATININE 1.2 mg/dL (0.55-1.3); GLUCOSE,RANDOM 100 mg/dL (74-106); POTASSIUM 4.6 mmol/L (3.5-5.1); SODIUM 140 mmol/L (136-145)
[2018-09-16] MEDS: amLODIPine BESYLATE 5 MG TABLET (FP) PO SCH (10:09)
[2018-09-16] MEDS: FUROSEMIDE 40 MG TABLET (FP) PO SCH (10:09)
--- NOTE | 2018-09-16 18:33 | PN ---
Teaching Attending Note Name of Resident: Polly Chau ATTENDING PHYSICIAN STATEMENT I saw and evaluated the patient. I reviewed the resident's note and discussed the case with the resident. I agree with the resident's findings and plan as documented. SUBJECTIVE: OBJECTIVE: Vital Signs Period Temp Pulse Resp BP Sys/Dow Pulse Ox Last 24 Hr 97.9 F-98.8 F 51-61 18-20 123-143/58-68 96-96 Laboratory Results - last 24 hr 09/16/18 06:20 Sodium 140 Potassium 4.6 Chloride 103 Carbon Dioxide 32 Anion Gap 4 L BUN 34 H Creatinine 1.2 Creat Clearance w eGFR 59.18 Random Glucose 100 Calcium 8.5 Current Medications Generic Name Dose Route Start Last Admin Trade Name Freq PRN Reason Stop Dose Admin Amlodipine Besylate 5 mg 09/11/18 10:00 09/16/18 10:09 Norvasc - PO 5 mg DAILY LILIYA Administration Furosemide 40 mg 09/15/18 10:00 09/16/18 10:09 Lasix - PO 40 mg DAILY LILIYA Administration Heparin Sodium (Porcine) 5,000 unit 09/10/18 22:00 09/16/18 15:54 Heparin - SQ 5,000 unit TID LILIYA Administration Olanzapine 5 mg 09/11/18 22:00 09/15/18 23:22 Zyprexa - PO 5 mg HS LILIYA Administration ASSESSMENT AND PLAN:
--- NOTE | 2018-09-16 18:57 | PN ---
Physical Exam: SUBJECTIVE: Patient seen and examined at bed side this morning. No complaints.Denies chest pain, sob, palpitation, cough, abdominal pain, nausea or vomiting. No acute overnight events. Patient wants to go home tomorrow. He has been saying this everyday last week. OBJECTIVE: Vital Signs Period Temp Pulse Resp BP Sys/Dow Pulse Ox Last 24 Hr 97.9 F-98.8 F 51-61 18-20 123-143/58-68 96-96 GENERAL: Elderly male, dishelved, standing, Awake, alert, and fully oriented, in no acute distress. HEAD: Normal with no signs of trauma. EYES: EOM intact, no pallor or icterus. EARS, NOSE, THROAT: Ears normal. Moist mucous membranes, poor dentition. NECK: Supple, no JVD LUNGS: Breath sounds equal, clear to auscultation bilaterally. No wheezes, and no crackles. No accessory muscle use. HEART: Regular rate and rhythm, normal S1 and S2 without murmur. ABDOMEN: Soft, nontender, no organomegaly. RECTAL EXAM: Denied GENITALS/INGUINAL AREA: Hernia + likely compressing the bladder, small penis MUSCULOSKELETAL: Normal range of motion at all joints. No bony deformities or tenderness. No CVA tenderness. UPPER EXTREMITIES: 2+ pulses, warm, well-perfused. No cyanosis. No clubbing. No peripheral edema. LOWER EXTREMITIES: 2+ pulses, warm, well-perfused. No calf tenderness. B/L pitting peripheral edema-improving. Toe nails trimmed. NEUROLOGICAL: No facial droop. Normal speech. Gait normal. PSYCHIATRIC: Cooperative. Good eye contact. Flat affect SKIN: Warm, dry, normal turgor, no rashes or lesions noted, normal capillary refill. Laboratory Results - last 24 hr 09/16/18 06:20 Sodium 140 Potassium 4.6 Chloride 103 Carbon Dioxide 32 Anion Gap 4 L BUN 34 H Creatinine 1.2 Creat Clearance w eGFR 59.18 Random Glucose 100 Calcium 8.5 Active Medications Generic Name Dose Route Start Last Admin Trade Name Freq PRN Reason Stop Dose Admin Amlodipine Besylate 5 mg 09/11/18 10:00 09/16/18 10:09 Norvasc - PO 5 mg DAILY LILIYA Administration Furosemide 40 mg 09/15/18 10:00 09/16/18 10:09 Lasix - PO 40 mg DAILY LILIYA Administration Heparin Sodium (Porcine) 5,000 unit 09/10/18 22:00 09/16/18 15:54 Heparin - SQ 5,000 unit TID LILIYA Administration Olanzapine 5 mg 09/11/18 22:00 09/15/18 23:22 Zyprexa - PO 5 mg HS LILIYA Administration ASSESSMENT/PLAN: Patient is a 73 year old male with past medical history of Hypertension, CAD s/ p stents, Psych disorder (not on any meds) presented to the ED accompanied with roommate with the chief complaint of worsening of urinary retention and gait instability. # Abrasion on the L second digit Likely secondary to long great toe nails- trimmed by podiatry. # Dementia with mild B/L cerebral dysfunction-at baseline # H/o Psychiatric disorder Continue Zyprexa 5mg # Inguinal hernia Patient refusing surgical intervention. # Urinary frequency-improving. # Bilateral swelling of legs improving with diuresis BNP: 962. ECHO done EF 55 %. Mild concentric hypertrophy, left ventricular systolic function normal. Trace MR, AR DVT ruled out. Continue Lasix 40mg PO Daily # CAD s/p stents not on any meds # Normal A1c 5.6, Lipid profile normal. # FEN Can tolerate PO Electrolytes WNL Sodium controlled diet # Prophylaxis For DVT: on Heparin 5000 IU sq TID FoR GI: Not indicated # Code Status: Full Code Illness, Investigation and Plan of care explained to the patient. He verbalized understanding. Case discussed with Dr. Pittman. Problem List - Problems (1) Abnormal urinary stream Code(s): R39.198 - OTHER DIFFICULTIES WITH MICTURITION (2) Altered mental status Code(s): R41.82 - ALTERED MENTAL STATUS, UNSPECIFIED Qualifiers: Altered mental status type: unspecified Qualified Code(s): R41.82 - Altered mental status, unspecified (3) Dementia Code(s): F03.90 - UNSPECIFIED DEMENTIA WITHOUT BEHAVIORAL DISTURBANCE (4) Edema Code(s): R60.9 - EDEMA, UNSPECIFIED (5) Hypertension Code(s): I10 - ESSENTIAL (PRIMARY) HYPERTENSION Qualifiers: Hypertension type: essential hypertension Qualified Code(s): I10 - Essential (primary) hypertension Visit type - Emergency Visit Emergency Visit: Yes ED Registration Date: 09/11/18 Care time: The patient presented to the Emergency Department on the above date and was hospitalized for further evaluation of their emergent condition. - New Patient This patient is new to me today: No - Critical Care Critical Care patient: No - Discharge Referral Referred to [facility] Med [facility]C.: No
[2018-09-16] MEDS: OLANZapine 5 MG TABLET PO SCH (21:53)
[2018-09-17] MEDS: HEPARIN NA (PORCINE) 5,000 UNITS/ML 1ML VIAL SQ SCH ×2 (06:18→13:02)
[2018-09-17] MEDS: FUROSEMIDE 40 MG TABLET (FP) PO SCH (09:14)
[2018-09-17] MEDS: amLODIPine BESYLATE 5 MG TABLET (FP) PO SCH (09:14)
--- NOTE | 2018-09-17 09:22 | CONSULT ---
- Consultation REQUESTING PROVIDER: Fred Cortes, DO CONSULT REQUEST: We have been asked to surgically evaluate this patient for ? PVD PCP: Sivakumar Pittman MD Called to eval 73 yo male who was admitted to [facility] 2/2 urinary symptoms which have resolved per medicine notes. Vascular Surgery consulted by Podiatry (s/p toenail clipping consult) for ? PVD. Patient sitting on edge of bed resting comfortably without complaint. States he ambulates unassisted. Denies and symptoms of claudication as he can ambulate < 400' without complaint. Denies rest pain. Can stand long periods without legs feeling tired or weak. Last Vital Signs Temp Pulse Resp BP Pulse Ox 98.2 F 43 L 20 161/68 96 09/17/18 06:23 09/17/18 06:23 09/17/18 06:23 09/17/18 06:23 09/16/18 21:00 CBC, BMP 09/11/18 06:15 09/16/18 06:20 Gen: alert. nad. poor hygiene LE: no color skin changes noted. no peripheral edema. no calf tenderness. onchyomycosis. + DP & PT bilat. feet warm Problem List - Problems (1) Onychomycosis Assessment/Plan: So signs/symptoms of PVD. Cont daily foot care per Podiatry Improve daily hygiene No vascular surgery intervention On behalf of Dr. Cortes, thank you for the opportunity to participate in your patient's care. Code(s): B35.1 - TINEA UNGUIUM
--- NOTE | 2018-09-17 12:47 | DS ---
Physical Exam: SUBJECTIVE: Patient seen and examined OBJECTIVE: Vital Signs Period Temp Pulse Resp BP Sys/Dow Pulse Ox Last 24 Hr 98.1 F-98.8 F 43-61 18-20 120-161/58-72 96-100 PHYSICAL EXAM GENERAL: The patient is awake, alert, and fully oriented, in no acute distress. HEAD: Normal with no signs of trauma. EYES: PERRL, extraocular movements intact, sclera anicteric, conjunctiva clear. ENT: Ears normal, nares patent, oropharynx clear without exudates, moist mucous membranes. NECK: Trachea midline, full range of motion, supple. LUNGS: Breath sounds equal, clear to auscultation bilaterally, no wheezes, no crackles, no accessory muscle use. HEART: Regular rate and rhythm, S1, S2 without murmur, rub or gallop. ABDOMEN: Soft, nontender, nondistended, normoactive bowel sounds, no guarding, no rebound, no hepatosplenomegaly, no masses. EXTREMITIES: 2+ pulses, warm, well-perfused, no edema. NEUROLOGICAL: Cranial nerves II through XII grossly intact. Normal speech, gait not observed. PSYCH: Normal mood, normal affect. SKIN: Warm, dry, normal turgor, no rashes or lesions noted. LABS HOSPITAL COURSE: Date of Admission:09/11/18 Date of Discharge: 09/17/18 Minutes to complete discharge: 35 Discharge Summary Reason For Visit: FAILURE TO THRIVE/ABNORMAL URINARY STREAM Current Active Problems Peripheral neuropathy (Chronic) Ataxia (Chronic) Abnormal urinary stream (Acute) Hypertension (Chronic) Failure to thrive (Chronic) Dementia (Chronic) Edema (Acute) Bilateral inguinal hernia without obstruction or gangrene (Chronic) Umbilical hernia without obstruction or gangrene (Chronic) CAD (coronary artery disease) (Chronic) Onychomycosis (Acute) Condition: Stable - Instructions Diet, Activity, Other Instructions: Diet: Low sodium, low cholesterol Activity: As tolerated Referrals: Daniela Ritter MD [Primary Care Provider] - Disposition: [facility] - Home Medications Comprehensive Discharge Medication List: Ambulatory Orders Amlodipine Besylate [Norvasc -] 5 mg PO DAILY #14 tab 07/10/18 Furosemide [Lasix -] 40 mg PO DAILY tablet 09/17/18 Olanzapine [Zyprexa -] 5 mg PO HS tablet 09/17/18 - Discharge Referral Referred to [facility] No
[2018-09-17 14:55] VITALS: BP 153/78; PULSE 82; TEMP 98.1
== END 2018-09-17 16:04 | DRG 884 ==
LOC: SUPCPDRO 10:19 → JER 10:19 → JERBED 14:39 → J7W 18:55 → OBSVTOIN 09-11 11:51 → J7W 09-14 19:57
PROVIDERS: ADMIT Internal Medicine; ATTEND Internal Medicine
PROC: 0HBRXZZ Excision of Toe Nail, External Approach (ICD-10-PCS; principal; 2018-09-15)
PROC: 0HBRXZZ Excision of Toe Nail, External Approach (ICD-10-PCS; 2018-09-15)
PROC: 0HBRXZZ Excision of Toe Nail, External Approach (ICD-10-PCS; 2018-09-15)
PROC: 0HBRXZZ Excision of Toe Nail, External Approach (ICD-10-PCS; 2018-09-15)
PROC: 0HBRXZZ Excision of Toe Nail, External Approach (ICD-10-PCS; 2018-09-15)
PROC: 0HBRXZZ Excision of Toe Nail, External Approach (ICD-10-PCS; 2018-09-15)
PROC: 0HBRXZZ Excision of Toe Nail, External Approach (ICD-10-PCS; 2018-09-15)
PROC: 0HBRXZZ Excision of Toe Nail, External Approach (ICD-10-PCS; 2018-09-15)
PROC: 0HBRXZZ Excision of Toe Nail, External Approach (ICD-10-PCS; 2018-09-15)
PROC: 0HBRXZZ Excision of Toe Nail, External Approach (ICD-10-PCS; 2018-09-15)
DX: F03.91 Unspecified dementia, unspecified severity, with behavioral disturbance (principal); R62.7 Adult failure to thrive; I25.10 Atherosclerotic heart disease of native coronary artery without angina pectoris; R35.0 Frequency of micturition; R26.81 Unsteadiness on feet; M79.89 Other specified soft tissue disorders; R41.82 Altered mental status, unspecified; I73.9 Peripheral vascular disease, unspecified; R60.9 Edema, unspecified; I10 Essential (primary) hypertension; K42.9 Umbilical hernia without obstruction or gangrene; F99 Mental disorder, not otherwise specified; K40.20 Bilateral inguinal hernia, without obstruction or gangrene, not specified as recurrent; B35.1 Tinea unguium; G62.9 Polyneuropathy, unspecified; R27.0 Ataxia, unspecified; Z95.5 Presence of coronary angioplasty implant and graft
CPT/HCPCS: 36415; 70551-TC; 71045-TC-FY; 76775-TC; 76856-TC; 80048; 80053; 80061; 81003; 82607; 82746; 83036; 83605; 83721; 83735; 83880; 84100; 84443; 84484; 85025; 85027; 86593; 87086; 93005; 93010; 93306-TC; 93970-TC; 99283-25; G0378; J1644

== ENCOUNTER 2022-01-04 08:47 | Inpatient (IN) | payer OTHER ==
[2022-01-04 09:15] VITALS: BMI 29.8
[2022-01-04] MEDS ORDERED: ACETAMINOPHEN 1000 MG/100 ML BAG IVPB ONE (09:20)
[2022-01-04] MEDS ORDERED: ACETAMINOPHEN INJECTION 100 ML IVPB ONE (09:41)
[2022-01-04 10:16] LABS: VENOUS O2 SATURATION 73.4 % (70-80); VENOUS PCO2 46.4 mmHg (38-52); VENOUS PH 7.338 (7.310-7.410)
[2022-01-04 10:38] LABS: CHLORIDE 119 mmol/L (98-107); SODIUM 157 mmol/L (136-145)
[2022-01-04 10:39] LABS: CALCIUM 9.8 mg/dL (8.5-10.1)
[2022-01-04 10:40] LABS: ALBUMIN 3.5 g/dl (3.4-5.0); ANION GAP 15 MMOL/L (8-16); CO2 24 mmol/L (21-32); GLUCOSE,RANDOM 134 mg/dL (74-106)
[2022-01-04 10:43] LABS: CREATININE 4.2 mg/dL (0.55-1.3); INR 1.12 (0.83-1.09); PROTHROMBIN TIME (PATIENT) 12.9 SEC (9.7-13.0); SGOT/AST 211 U/L (15-37); SGPT/ALT 89 U/L (13-61)
[2022-01-04 10:45] LABS: TOT PROT 8.4 g/dl (6.4-8.2)
[2022-01-04 10:46] LABS: ACTIVATED PTT 22.7 SECONDS (25.2-36.5); ALK PHOS 73 U/L (45-117)
[2022-01-04 10:47] LABS: BASO % 0.4 % (0-2.0); HEMATOCRIT 51.5 % (35.4-49); HEMOGLOBIN 16.7 GM/dL (11.7-16.9); LYMPH % 10.6 % (8-40); MCH 28.4 pg (25.7-33.7); MCHC 32.4 g/dl (32.0-35.9); MEAN CELL VOLUME 87.5 fl (80-96); MEAN PLT VOLUME 9.9 fl (7.5-11.1); MONO % 14.7 % (3.8-10.2); NEUT % 74.3 % (42.8-82.8); PLATELET COUNT 186 10^3/uL (134-434); RBC 5.88 M/mm3 (4.00-5.60); RDW 15.2 % (11.9-15.9); WHITE BLOOD COUNT 8.5 K/mm3 (4.0-10.0)
[2022-01-04] MEDS ORDERED: VANCOMYCIN 1 GM in D5W (PRE-DOCKED) 1,000 MG/250 ML IVPB ONE (10:54)
[2022-01-04] MEDS ORDERED: LACTATED RINGERS SOLUTION 1000 ML INFUS.BAG IV ONE ×2 (10:54→11:45)
[2022-01-04] MEDS ORDERED: CEFEPIME HCL/D5W 2 GM/50 ML BAG IVPB ONE (10:54)
[2022-01-04 10:55] LABS: BLOOD UREA NITROGEN 130.4 mg/dL (7-18)
[2022-01-04] MEDS ORDERED: CEFEPIME 2 GM/100 ML BAG IVPB ONE (11:04)
[2022-01-04 11:37] LABS: EPI CELLS 22 /uL (0-25.1); HYALINE CASTS 23 /uL (0-3.1); URINE APPEARANCE CLOUDY; URINE BACTERIA 6 /uL (0-1359); URINE BILIRUBIN NEGATIVE (NEGATIVE); URINE COLOR DK YELLOW; URINE GLUCOSE (UA) NEGATIVE (NEGATIVE); URINE KETONE TRACE (NEGATIVE); URINE LEUK ESTERASE NEGATIVE (NEGATIVE); URINE NITRITE NEGATIVE (NEGATIVE); URINE PROTEIN 2+ (NEGATIVE)
[2022-01-04] MEDS ORDERED: VANCOMYCIN 1 GRAM (PRE-DOCKED) 1,000 MG/250 ML BAG IVPB ONE (11:57)
[2022-01-04 12:23] LABS: URINE RBC 41.2 /uL (0-23.9)
[2022-01-04 12:24] LABS: URINE WBC 95.2 /uL (0-25.8)
[2022-01-04] MEDS: SODIUM CHLORIDE 0.45% 1,000 ML IV SCH (14:43)
[2022-01-04 17:17] LABS: ALBUMIN 2.6 g/dl (3.4-5.0); ALK PHOS 57 U/L (45-117); ANION GAP 10 MMOL/L (8-16); BLOOD UREA NITROGEN 129.1 mg/dL (7-18); CALCIUM 8.8 mg/dL (8.5-10.1); CHLORIDE 122 mmol/L (98-107); CO2 24 mmol/L (21-32); CREATININE 3.3 mg/dL (0.55-1.3); GLUCOSE,RANDOM 135 mg/dL (74-106); SGOT/AST 156 U/L (15-37); SGPT/ALT 74 U/L (13-61); SODIUM 156 mmol/L (136-145); TOT PROT 6.7 g/dl (6.4-8.2)
[2022-01-04] MEDS ORDERED: ACETAMINOPHEN 325 MG TABLET (FP) PO PRN (17:30)
[2022-01-04] MEDS ORDERED: DEXTROSE 5%-WATER - 50 ML IVPB ONE (20:33)
[2022-01-04] MEDS ORDERED: PIPERACILLIN/TAZOBACTAM 2.25 GM VIAL IVPB ONE (20:33)
[2022-01-04] MEDS: PIPERACILLIN/TAZOB 2.25 GM 2.25 GM in DEXTROSE 5%-WATER - 50 ML IVPB SCH (20:43)
[2022-01-04] MEDS ORDERED: ASPIRIN 325 MG ENTERIC COATED TABLET (FP) PO ONE (22:27)
[2022-01-05] MEDS ORDERED: PIPERACILLIN/TAZOBACTAM 2.25 GM VIAL IVPB ONE ×3 (01:08→17:34)
[2022-01-05] MEDS ORDERED: DEXTROSE 5%-WATER - 50 ML IVPB ONE ×3 (01:08→17:35)
[2022-01-05] MEDS: PIPERACILLIN/TAZOB 2.25 GM 2.25 GM in DEXTROSE 5%-WATER - 50 ML IVPB SCH ×2 (01:40→09:29)
[2022-01-05 06:56] LABS: HEMOGLOBIN 14.7 GM/dL (11.7-16.9); MCH 28.8 pg (25.7-33.7); MCHC 33.4 g/dl (32.0-35.9); MEAN CELL VOLUME 86.3 fl (80-96); PLATELET COUNT 130 10^3/uL (134-434); RBC 5.09 M/mm3 (4.00-5.60); WHITE BLOOD COUNT 7.9 K/mm3 (4.0-10.0)
[2022-01-05 07:18] LABS: CALCIUM 8.3 mg/dL (8.5-10.1); MAGNESIUM 3.5 mg/dL (1.8-2.4)
[2022-01-05 07:19] LABS: ALBUMIN 2.5 g/dl (3.4-5.0)
[2022-01-05 07:21] LABS: CREATININE 2.3 mg/dL (0.55-1.3); PHOSPHOROUS 3.6 mg/dL (2.5-4.9)
[2022-01-05 07:23] LABS: TOT PROT 6.5 g/dl (6.4-8.2)
[2022-01-05 07:27] LABS: BLOOD UREA NITROGEN 102.3 mg/dL (7-18)
[2022-01-05] MEDS: PANTOPRAZOLE SODIUM 40 MG VIAL IVPUSH SCH (09:30)
[2022-01-05] MEDS: ASPIRIN COATED 81 MG TABLET.EC PO SCH (09:31)
[2022-01-05 11:04] LABS: ANISOCYTOSIS 0; MACROCYTOSIS 0; PLATELET ESTIMATE NORMAL
[2022-01-05] MEDS: amLODIPine BESYLATE 5 MG TABLET (FP) PO SCH (12:20)
[2022-01-05] MEDS: SODIUM CHLORIDE 0.45% 1,000 ML IV SCH (13:43)
[2022-01-05 21:10] LABS: CALCIUM 8.3 mg/dL (8.5-10.1)
[2022-01-05 21:11] LABS: BLOOD UREA NITROGEN 87.7 mg/dL (7-18)
[2022-01-05 21:14] LABS: CREATININE 2.1 mg/dL (0.55-1.3)
[2022-01-05] MEDS: HEPARIN NA (PORCINE) 5,000 UNITS/ML 1ML VIAL SQ SCH (22:04)
[2022-01-06] MEDS: SODIUM CHLORIDE 0.45% 1,000 ML IV SCH (02:52)
[2022-01-06 08:37] LABS: HEMOGLOBIN 14.1 GM/dL (11.7-16.9); MCH 28.1 pg (25.7-33.7); MEAN CELL VOLUME 87.7 fl (80-96); MEAN PLT VOLUME 9.8 fl (7.5-11.1); PLATELET COUNT 137 10^3/uL (134-434); RBC 5.02 M/mm3 (4.00-5.60); RDW 15.2 % (11.9-15.9); WHITE BLOOD COUNT 11.9 K/mm3 (4.0-10.0)
[2022-01-06 08:50] LABS: ALBUMIN 2.4 g/dl (3.4-5.0); BLOOD UREA NITROGEN 101.4 mg/dL (7-18); CALCIUM 7.8 mg/dL (8.5-10.1); MAGNESIUM 3.5 mg/dL (1.8-2.4)
[2022-01-06 08:52] LABS: CREATININE 3.5 mg/dL (0.55-1.3); PHOSPHOROUS 3.9 mg/dL (2.5-4.9)
[2022-01-06 08:54] LABS: BILIRUBIN,TOTAL 0.7 mg/dL (0.2-1); TOT PROT 6.2 g/dl (6.4-8.2)
[2022-01-06] MEDS ORDERED: DEXTROSE 5%-WATER - 50 ML IVPB ONE ×2 (09:49→17:35)
[2022-01-06] MEDS ORDERED: PIPERACILLIN/TAZOBACTAM 2.25 GM VIAL IVPB ONE ×2 (09:49→17:35)
[2022-01-06] MEDS: PIPERACILLIN/TAZOB 2.25 GM 2.25 GM in DEXTROSE 5%-WATER - 50 ML IVPB SCH ×2 (09:57→17:44)
[2022-01-06] MEDS: DEXTROSE 5%-WATER - 1,000 ML IV SCH (09:59)
[2022-01-06] MEDS: PANTOPRAZOLE SODIUM 40 MG VIAL IVPUSH SCH (10:01)
[2022-01-06] MEDS: HEPARIN NA (PORCINE) 5,000 UNITS/ML 1ML VIAL SQ SCH ×2 (10:01→22:10)
[2022-01-06] MEDS: amLODIPine BESYLATE 5 MG TABLET (FP) PO SCH (10:01)
[2022-01-06] MEDS: ASPIRIN COATED 81 MG TABLET.EC PO SCH (10:01)
[2022-01-06] MEDS ORDERED: FUROSEMIDE 40 MG/4 ML INJECTABLE VIAL IVPUSH ONE (11:00)
[2022-01-06 12:40] LABS: ANISOCYTOSIS 0; HELMET CELLS 0; HOWELL-JOLLY BODIES 0; MACROCYTOSIS 0; OVALOCYTE 0; ROULEAU 0; SICKELED CELLS 0; TARGET CELLS 0; TEAR DROP CELLS 0; TOXIC GRANULATION 0
[2022-01-06] MEDS ORDERED: BISACODYL 10 MG SUPP.RECT PR PRN (16:38)
[2022-01-06] MEDS: POLYETHYLENE GLYCOL (HEALTHYLAX) 3350 17 GM PACKET PO SCH (17:45)
[2022-01-06 18:55] LABS: CHLORIDE 120 mmol/L (98-107); SODIUM 155 mmol/L (136-145)
[2022-01-06 18:56] LABS: CALCIUM 7.8 mg/dL (8.5-10.1)
[2022-01-06 18:57] LABS: ANION GAP 10 MMOL/L (8-16); CO2 25 mmol/L (21-32); GLUCOSE,RANDOM 144 mg/dL (74-106)
[2022-01-06 19:00] LABS: CREATININE 4.8 mg/dL (0.55-1.3)
[2022-01-06 19:09] LABS: BLOOD UREA NITROGEN 112.2 mg/dL (7-18)
[2022-01-07] MEDS ORDERED: PIPERACILLIN/TAZOBACTAM 2.25 GM VIAL IVPB ONE ×2 (01:29→09:27)
[2022-01-07] MEDS ORDERED: DEXTROSE 5%-WATER - 50 ML IVPB ONE ×2 (01:30→09:27)
[2022-01-07] MEDS: PIPERACILLIN/TAZOB 2.25 GM 2.25 GM in DEXTROSE 5%-WATER - 50 ML IVPB SCH ×3 (01:46→09:44)
[2022-01-07] MEDS: DEXTROSE 5%-WATER - 1,000 ML IV SCH (01:48)
[2022-01-07 07:52] LABS: CHLORIDE 116 mmol/L (98-107); SODIUM 151 mmol/L (136-145)
[2022-01-07 08:11] LABS: ALBUMIN 2.4 g/dl (3.4-5.0); ANION GAP 10 MMOL/L (8-16); CALCIUM 7.7 mg/dL (8.5-10.1); CO2 25 mmol/L (21-32); GLUCOSE,RANDOM 140 mg/dL (74-106)
[2022-01-07 08:14] LABS: SGPT/ALT 50 U/L (13-61)
[2022-01-07 08:15] LABS: CREATININE 5.2 mg/dL (0.55-1.3); SGOT/AST 66 U/L (15-37)
[2022-01-07 08:16] LABS: BILIRUBIN,TOTAL 0.7 mg/dL (0.2-1); TOT PROT 5.9 g/dl (6.4-8.2)
[2022-01-07 08:17] LABS: ALK PHOS 45 U/L (45-117)
[2022-01-07 08:25] LABS: HEMATOCRIT 41.1 % (35.4-49); HEMOGLOBIN 13.5 GM/dL (11.7-16.9); MCH 28.7 pg (25.7-33.7); MCHC 32.7 g/dl (32.0-35.9); MEAN CELL VOLUME 87.6 fl (80-96); MEAN PLT VOLUME 9.7 fl (7.5-11.1); PLATELET COUNT 99 10^3/uL (134-434); RBC 4.69 M/mm3 (4.00-5.60); RDW 15.4 % (11.9-15.9); WHITE BLOOD COUNT 13.8 K/mm3 (4.0-10.0)
[2022-01-07 08:28] LABS: BLOOD UREA NITROGEN 111.1 mg/dL (7-18)
[2022-01-07] MEDS: POLYETHYLENE GLYCOL (HEALTHYLAX) 3350 17 GM PACKET PO SCH (09:44)
[2022-01-07] MEDS: amLODIPine BESYLATE 5 MG TABLET (FP) PO SCH (09:44)
[2022-01-07] MEDS: PANTOPRAZOLE SODIUM 40 MG VIAL IVPUSH SCH (09:44)
[2022-01-07] MEDS: ASPIRIN COATED 81 MG TABLET.EC PO SCH (09:44)
[2022-01-07 11:10] LABS: ANISOCYTOSIS 0; MACROCYTOSIS 0
[2022-01-07 12:39] LABS: EPI CELLS 3 /uL (0-25.1); HYALINE CASTS 1 /uL (0-3.1); URINE APPEARANCE CLOUDY; URINE BACTERIA 9 /uL (0-1359); URINE BILIRUBIN NEGATIVE (NEGATIVE); URINE COLOR YELLOW; URINE GLUCOSE (UA) NEGATIVE (NEGATIVE); URINE KETONE NEGATIVE (NEGATIVE); URINE LEUK ESTERASE TRACE (NEGATIVE); URINE NITRITE NEGATIVE (NEGATIVE); URINE PROTEIN TRACE (NEGATIVE); URINE RBC 61 /uL (0-23.9); URINE UROBILINOGEN 0.2 mg/dL (0.2-1.0); URINE WBC 18 /uL (0-25.8)
[2022-01-08] MEDS: DEXTROSE 5%-WATER - 1,000 ML IV SCH (06:36)
[2022-01-08] MEDS: PIPERACILLIN/TAZOB 2.25 GM 2.25 GM in DEXTROSE 5%-WATER - 50 ML IVPB SCH (07:54)
[2022-01-08 07:56] LABS: HEMATOCRIT 40.5 % (35.4-49); HEMOGLOBIN 13.4 GM/dL (11.7-16.9); MCH 28.7 pg (25.7-33.7); MCHC 33.1 g/dl (32.0-35.9); MEAN CELL VOLUME 86.6 fl (80-96); MEAN PLT VOLUME 9.1 fl (7.5-11.1); PLATELET COUNT 104 10^3/uL (134-434); RBC 4.67 M/mm3 (4.00-5.60); RDW 14.9 % (11.9-15.9); WHITE BLOOD COUNT 11.5 K/mm3 (4.0-10.0)
[2022-01-08 08:18] LABS: ALBUMIN 2.2 g/dl (3.4-5.0); MAGNESIUM 3.1 mg/dL (1.8-2.4)
[2022-01-08 08:21] LABS: CREATININE 1.7 mg/dL (0.55-1.3); PHOSPHOROUS 2.5 mg/dL (2.5-4.9)
[2022-01-08 08:22] LABS: BILIRUBIN,TOTAL 0.7 mg/dL (0.2-1)
[2022-01-08 08:23] LABS: TOT PROT 5.9 g/dl (6.4-8.2)
[2022-01-08 08:30] LABS: BLOOD UREA NITROGEN 58.3 mg/dL (7-18)
[2022-01-08] MEDS: PANTOPRAZOLE SODIUM 40 MG VIAL IVPUSH SCH (09:28)
[2022-01-08 09:33] LABS: BLOOD UREA NITROGEN 96.2 mg/dL (7-18); CALCIUM 7.7 mg/dL (8.5-10.1)
[2022-01-08] MEDS: POLYETHYLENE GLYCOL (HEALTHYLAX) 3350 17 GM PACKET PO SCH (09:52)
[2022-01-08] MEDS: ASPIRIN COATED 81 MG TABLET.EC PO SCH (09:52)
[2022-01-08] MEDS: amLODIPine BESYLATE 5 MG TABLET (FP) PO SCH (09:52)
[2022-01-08 11:11] LABS: ANISOCYTOSIS 0; HELMET CELLS 0; HOWELL-JOLLY BODIES 0; MACROCYTOSIS 0; OVALOCYTE 0; ROULEAU 0; SICKELED CELLS 0; TARGET CELLS 0; TEAR DROP CELLS 0; TOXIC GRANULATION 0
[2022-01-08] MEDS ORDERED: ALBUTEROL SO4 2.5/IPRATROPIUM 0.5 INH SOL 3 ML VIAL.NEB. NEB PRN (12:06)
[2022-01-08] MEDS ORDERED: DEXTROSE 5%-WATER - 1,000 ML IV SCH (17:23)
[2022-01-09 07:33] LABS: HEMATOCRIT 41.1 % (35.4-49); HEMOGLOBIN 13.8 GM/dL (11.7-16.9); MCH 29.1 pg (25.7-33.7); MCHC 33.6 g/dl (32.0-35.9); MEAN CELL VOLUME 86.8 fl (80-96); MEAN PLT VOLUME 9.5 fl (7.5-11.1); PLATELET COUNT 97 10^3/uL (134-434); RBC 4.74 M/mm3 (4.00-5.60); RDW 14.6 % (11.9-15.9); WHITE BLOOD COUNT 10.9 K/mm3 (4.0-10.0)
[2022-01-09 08:00] LABS: CALCIUM 7.6 mg/dL (8.5-10.1)
[2022-01-09 08:01] LABS: ALBUMIN 2.4 g/dl (3.4-5.0)
[2022-01-09 08:04] LABS: CREATININE 1.1 mg/dL (0.55-1.3)
[2022-01-09 08:05] LABS: TOT PROT 6.1 g/dl (6.4-8.2)
[2022-01-09 08:06] LABS: BILIRUBIN,TOTAL 0.8 mg/dL (0.2-1)
[2022-01-09 08:13] LABS: BLOOD UREA NITROGEN 28.9 mg/dL (7-18)
[2022-01-09] MEDS: POLYETHYLENE GLYCOL (HEALTHYLAX) 3350 17 GM PACKET PO SCH (09:46)
[2022-01-09] MEDS: PANTOPRAZOLE SODIUM 40 MG VIAL IVPUSH SCH (09:46)
[2022-01-09] MEDS: amLODIPine BESYLATE 5 MG TABLET (FP) PO SCH (09:46)
[2022-01-09] MEDS: ASPIRIN COATED 81 MG TABLET.EC PO SCH (09:46)
[2022-01-09] MEDS ORDERED: DEXTROSE 5%-WATER - 1,000 ML IV SCH (09:50)
[2022-01-09 10:15] LABS: ANISOCYTOSIS 0; HELMET CELLS 0; HOWELL-JOLLY BODIES 0; MACROCYTOSIS 0; OVALOCYTE 0; ROULEAU 0; SICKELED CELLS 0; TARGET CELLS 0; TEAR DROP CELLS 0; TOXIC GRANULATION 0
[2022-01-09] MEDS: TAMSULOSIN HCL 0.4 MG CAP PO SCH (11:00)
[2022-01-09] MEDS: POTASSIUM CHLORIDE 20 MEQ in DEXTROSE 5%-WATER - 1,000 ML IV SCH (12:28)
[2022-01-10 07:14] LABS: BASO % 0.3 % (0-2.0); EOS % 2.9 % (0-4.5); HEMATOCRIT 38.8 % (35.4-49); HEMOGLOBIN 12.9 GM/dL (11.7-16.9); LYMPH % 15.3 % (8-40); MCH 28.7 pg (25.7-33.7); MCHC 33.1 g/dl (32.0-35.9); MEAN CELL VOLUME 86.7 fl (80-96); MEAN PLT VOLUME 9.4 fl (7.5-11.1); MONO % 8.3 % (3.8-10.2); NEUT % 73.2 % (42.8-82.8); PLATELET COUNT 111 10^3/uL (134-434); RBC 4.48 M/mm3 (4.00-5.60); RDW 14.4 % (11.9-15.9); WHITE BLOOD COUNT 10.3 K/mm3 (4.0-10.0)
[2022-01-10 07:52] LABS: BLOOD UREA NITROGEN 22.5 mg/dL (7-18); CALCIUM 7.7 mg/dL (8.5-10.1)
[2022-01-10 07:57] LABS: TOT PROT 5.8 g/dl (6.4-8.2)
[2022-01-10 07:58] LABS: BILIRUBIN,TOTAL 0.6 mg/dL (0.2-1)
[2022-01-10] MEDS: ASPIRIN COATED 81 MG TABLET.EC PO SCH (09:46)
[2022-01-10] MEDS: POLYETHYLENE GLYCOL (HEALTHYLAX) 3350 17 GM PACKET PO SCH (09:48)
[2022-01-10] MEDS: TAMSULOSIN HCL 0.4 MG CAP PO SCH (09:49)
[2022-01-10] MEDS ORDERED: FUROSEMIDE 40 MG/4 ML INJECTABLE VIAL IVPUSH ONE (10:13)
[2022-01-10] MEDS: PANTOPRAZOLE 40 MG TABLET PO SCH (11:14)
[2022-01-10] MEDS: amLODIPine BESYLATE 5 MG TABLET (FP) PO SCH (11:17)
[2022-01-10] MEDS: HEPARIN NA (PORCINE) 5,000 UNITS/ML 1ML VIAL SQ SCH (11:30)
[2022-01-10] MEDS: POTASSIUM CHLORIDE 20 MEQ in DEXTROSE 5%-WATER - 1,000 ML IV SCH (14:28)
[2022-01-11 05:12] LABS: FIBROSIS SCORE. 0.22 (0.00-0.21); HCV ALPHA 2 MACRO CHART 177 mg/dL (110-276); NECRO.INFLAM ACT.SCORE 0.25 (0.00-0.17); NECROINFLAM. ACTIVITY GRADE A0-A1 (.)
[2022-01-11] MEDS: POLYETHYLENE GLYCOL (HEALTHYLAX) 3350 17 GM PACKET PO SCH ×2 (10:05→10:09)
[2022-01-11] MEDS: PANTOPRAZOLE 40 MG TABLET PO SCH (10:05)
[2022-01-11] MEDS: TAMSULOSIN HCL 0.4 MG CAP PO SCH (10:05)
[2022-01-11] MEDS: amLODIPine BESYLATE 5 MG TABLET (FP) PO SCH (10:05)
[2022-01-11] MEDS: ASPIRIN COATED 81 MG TABLET.EC PO SCH (10:06)
[2022-01-11] MEDS: POTASSIUM CHLORIDE 20 MEQ in DEXTROSE 5%-WATER - 1,000 ML IV SCH (12:32)
[2022-01-11 16:08] LABS: ATYPICAL pANCA <1:20 titer (Neg:<1:20); C-ANCA <1:20 titer (Neg:<1:20)
[2022-01-11 19:36] VITALS: BP 112/67; PULSE 67; TEMP 99.5
[2022-01-12 13:08] LABS: SARS-CoV-2 NAA Not Detected (Not Detected)
== END 2022-01-11 19:40 | DRG 871 ==
LOC: JER 08:47 → JERBED 13:30 → J4W 19:09
PROVIDERS: ADMIT Internal Medicine; ATTEND Internal Medicine
DX: A41.89 Other specified sepsis (principal); G93.41 Metabolic encephalopathy; N17.0 Acute kidney failure with tubular necrosis; K72.00 Acute and subacute hepatic failure without coma; J96.01 Acute respiratory failure with hypoxia; J69.0 Pneumonitis due to inhalation of food and vomit; E87.0 Hyperosmolality and hypernatremia; I25.10 Atherosclerotic heart disease of native coronary artery without angina pectoris; Z95.5 Presence of coronary angioplasty implant and graft; N40.1 Benign prostatic hyperplasia with lower urinary tract symptoms; R33.8 Other retention of urine; F99 Mental disorder, not otherwise specified; R50.9 Fever, unspecified; F20.9 Schizophrenia, unspecified; F03.90 Unspecified dementia, unspecified severity, without behavioral disturbance, psychotic disturbance, mood disturbance, and anxiety; N50.89 Other specified disorders of the male genital organs; N13.9 Obstructive and reflux uropathy, unspecified; R94.5 Abnormal results of liver function studies; R31.9 Hematuria, unspecified; D69.6 Thrombocytopenia, unspecified
CPT/HCPCS: 36415; 70450-TC; 71045-TC-FY; 71250-TC; 72170-TC-FY; 74230-TC-FY; 76700-TC; 80048; 80053; 81003; 82172; 82553; 82570; 82803; 82962; 82977; 83010; 83520; 83605; 83735; 83883; 84100; 84156; 84300; 84460; 84484; 84540; 85025; 85610; 85730; 86022; 86038; 86160; 86256; 86900; 87040; 87086; 87340; 87517; 92611-GN; 93005; 93010; 93306-TC; 97116-GP; 97162-GP; 99285-25; C9803-CS; J1644; U0003; U0005